=== PATIENT | female | born 1975 | race Caucasian/White ===

== ENCOUNTER 2017-06-27 07:54 | Inpatient (IN) | payer MEDICAID ==
[2017-06-27] MEDS ORDERED: Ketorolac 30 MG/ML SDV IVPUSH ONE (08:29)
[2017-06-27] MEDS ORDERED: Sodium Chloride 0.9% 1,000 ML IV ONE (08:29)
[2017-06-27] MEDS ORDERED: Ondansetron 4 MG/2 ML SDV IVPUSH ONE (08:29)
--- NOTE | 2017-06-27 08:40 | EDM.PDOC ---
ED HPI GENERAL MEDICAL PROBLEM - General Chief Complaint: Abdominal Pain Stated Complaint: STOMACH PAINS Time Seen by Provider: 06/27/17 08:38 - History of Present Illness INITIAL COMMENTS - FREE TEXT/NARRATIVE: HISTORY AND PHYSICAL: History of present illness: Patient's 41-year-old female with history of alcohol abuse and pancreatitis presents with a concern of upper abdominal pain after having been drinking recently she denies nausea vomiting fever chills shortness of breath or other concern. Review of systems: As per history of present illness and below otherwise all systems reviewed and negative. Past medical history: As per history of present illness and as reviewed below otherwise noncontributory. Surgical history: As per history of present illness and as reviewed below otherwise noncontributory. Social history: No reported history of drug or alcohol abuse. Family history: As per history of present illness and as reviewed below otherwise noncontributory. Physical exam: HEENT: Atraumatic, normocephalic, pupils reactive, negative for conjunctival pallor or scleral icterus, mucous membranes moist, throat clear, neck supple, nontender, trachea midline. Lungs: Clear to auscultation, breath sounds equal bilaterally, chest nontender. Heart: S1S2, regular, negative for clicks, rubs, or JVD. Abdomen: Soft, nondistended, tenderness across her upper abdomen to deep palpation no rebound no guarding Negative for masses or hepatosplenomegaly. Negative for costovertebral tenderness. Pelvis: Stable nontender. Genitourinary: Deferred. Rectal: Deferred. Extremities: Atraumatic, negative for cords or calf pain. Neurovascular unremarkable. Neuro: Awake, alert, oriented. Cranial nerves II through XII unremarkable. Cerebellum unremarkable. Motor and sensory unremarkable throughout. Exam nonfocal. Diagnostics: CBC CMP troponin PT/INR lipase chest x-ray EKG CT abdomen and pelvis with IV contrast Therapeutics: Normal saline 1 L bolus Toradol 30 mg IV Zofran 4 mg IV Impression: #1 alcohol abuse #2 abdominal pain history pancreatitis Definitive disposition and diagnosis as appropriate pending reevaluation and review of above. adbominal Pain Score (Numeric/FACES): 10 - Related Data Allergies Allergy/AdvReac Type Severity Reaction Status Date / Time Iodinated Contrast- Oral and Allergy Hives Verified 06/27/17 08:00 IV Dye [Iodinated Contrast Media - IV Dye] metoprolol Allergy Hives Verified 06/27/17 08:00 Home Meds: Home Meds Albuterol [Ventolin HFA] 2 puff INH Q4HR PRN 01/16/15 [History] Albuterol [Proair HFA] 2 puff INH QID PRN 01/26/16 [History] Iron/FA#1/C/B12/Biot/Coppr/Dss [Feriva FA Capsule] 1 each PO DAILY 01/26/16 [ History] Propranolol HCl [Propranolol] 60 mg PO DAILY 01/26/16 [History] Folic Acid 800 mcg PO DAILY 01/27/16 [History] Tiotropium [Spiriva HandiHaler] 2 puff DAILY 01/27/16 [History] Past Medical History HEENT History: Reports: Impaired Vision Respiratory History: Reports: Asthma, COPD Gastrointestinal History: Reports: Pancreatitis, Other (See Below) Other Gastrointestinal History: abdominal hernia Genitourinary History: Reports: None WANT AD SUPERVISOR History: Reports: Other (See Below) Other OB/BYN History: c section Musculoskeletal History: Reports: None Neurological History: Reports: Headaches, Chronic, Other (See Below) Other Neuro History: hand tremors Psychiatric History: Reports: None Endocrine/Metabolic History: Reports: Obesity/BMI 30+ Hematologic History: Reports: Anemia Oncologic (Cancer) History: Reports: None Dermatologic History: Reports: None - Past Surgical History Head Surgeries/Procedures: Reports: None Respiratory Surgical History: Reports: None GI Surgical History: Reports: Hernia Repair/Other, Other (See Below) Female Surgical History: Reports: None Endocrine Surgical History: Reports: None Neurological Surgical History: Reports: C-Spine Musculoskeletal Surgical History: Reports: None Oncologic Surgical History: Reports: None Dermatological Surgical History: Reports: None Social & Family History - Family History Family Medical History: Noncontributory HEENT: Reports: None Cardiac: Reports: Hypertension Respiratory: Reports: Asthma GI: Reports: None : Reports: None OBGYN: Reports: None Musculoskeletal: Reports: Arthritis Neurological: Reports: CVA Psychiatric: Reports: None Endocrine/Metabolic: Reports: Diabetes, type II Hematologic: Reports: None Oncologic: Reports: None - Tobacco Use Smoking Status *Q: Never Smoker Years of Tobacco use: 15 Packs/Tins Daily: 1 Used Tobacco, but Quit: Yes Month/Year Tobacco Last Used: october 2015 Second Hand Smoke Exposure: No - Caffeine Use Caffeine Use: Reports: None - Alcohol Use Days Per Week of Alcohol Use: 3 Number of Drinks Per Day: 2 Total Drinks Per Week: 6 - Recreational Drug Use Recreational Drug Use: No - Living Situation & Occupation Living situation: Reports: with Significant Other ED ROS GENERAL - Review of Systems Review Of Systems: ROS reveals no pertinent complaints other than HPI. ED EXAM, GENERAL - Physical Exam Exam: See Below (The dictation) Course - Vital Signs Last Recorded V/S: Last Vital Signs Temp 36.2 C 06/27/17 08:01 Pulse 101 H 06/27/17 09:13 Resp 20 06/27/17 09:13 BP 116/66 06/27/17 09:13 Pulse Ox 96 06/27/17 09:13 - Orders/Labs/Meds Orders: Active Orders 24 hr Category Date Time Status EKG 12 Lead [EKG Documentation Completion] [RC] STAT Care 06/27/17 08:12 Active Abdomen Pelvis wo Cont [CT] Stat Exams 06/27/17 08:29 Ordered HCG QUALITATIVE,URINE [URCHEM] Stat Lab 06/27/17 08:10 Ordered UA W/MICROSCOPIC [URIN] Stat Lab 06/27/17 08:16 Ordered Labs: Laboratory Tests 06/27/17 06/27/17 06/27/17 Range/Units 08:10 08:16 08:20 WBC 10.45 (4.0-11.0) K/uL RBC 3.50 L (4.30-5.90) M/uL Hgb 11.5 L (12.0-16.0) g/dL Hct 34.8 L (36.0-46.0) % MCV 99.4 H (80.0-98.0) fL MCH 32.9 H (27.0-32.0) pg MCHC 33.0 (31.0-37.0) g/dL RDW Std Deviation 50.1 (28.0-62.0) fl RDW Coeff of Christen 14 (11.0-15.0) % Plt Count 438 H (150-400) K/uL MPV 9.20 (7.40-12.00) fL Neut % (Auto) 53.1 (48.0-80.0) % Lymph % (Auto) 33.9 (16.0-40.0) % Payne % (Auto) 7.0 (0.0-15.0) % Eos % (Auto) 4.9 (0.0-7.0) % Baso % (Auto) 1.1 (0.0-1.5) % Neut # (Auto) 5.6 (1.4-5.7) K/uL Lymph # (Auto) 3.5 H (0.6-2.4) K/uL Payne # (Auto) 0.7 (0.0-0.8) K/uL Eos # (Auto) 0.5 (0.0-0.7) K/uL Baso # (Auto) 0.1 (0.0-0.1) K/uL Nucleated RBC % 0.0 /100WBC Nucleated RBCs # 0 K/uL INR Sodium (136-145) mmol/L Potassium (3.5-5.1) mmol/L Chloride (98-107) mmol/L Carbon Dioxide (21.0-32.0) mmol/L BUN (7.0-18.0) mg/dL Creatinine (0.6-1.0) mg/dL Est Cr Clr Drug Dosing mL/min Estimated GFR (MDRD) ml/min Glucose (74-106) mg/dL Calcium (8.5-10.1) mg/dL Total Bilirubin (0.2-1.0) mg/dL AST (15-37) IU/L ALT (14-63) IU/L Alkaline Phosphatase (46-116) U/L Troponin I (0.000-0.056) ng/mL Total Protein (6.4-8.2) g/dL Albumin (3.4-5.0) g/dL Globulin (2.0-3.5) g/dL Albumin/Globulin Ratio (1.3-2.8) Amylase (25-115) U/L Lipase (73-393) U/L Urine Color DARK YELLOW Urine Appearance SLT CLOUDY Urine pH 5.5 (5.0-8.0) Ur Specific [place] >= 1.030 (1.001-1.035) Urine Protein 30 (NEGATIVE) mg/dL Urine Glucose (UA) NEGATIVE (NEGATIVE) mg/dL Urine Ketones TRACE H (NEGATIVE) mg/dL Urine Occult Blood NEGATIVE (NEGATIVE) Urine Nitrite NEGATIVE (NEGATIVE) Urine Bilirubin MODERATE H (NEGATIVE) Urine Ictotest QNS Urine Urobilinogen 0.2 (<2.0) EU/dL Ur Leukocyte Esterase MODERATE (NEGATIVE) Urine RBC 0-2 (0-2/HPF) Urine WBC 8-10 (0-5/HPF) Ur Epithelial Cells MODERATE (NONE-FEW) Amorphous Sediment MODERATE (NEGATIVE) Urine Bacteria FEW (NEGATIVE) Urine HCG, Qual NEGATIVE (NEGATIVE) 06/27/17 06/27/17 Range/Units 08:20 08:20 WBC (4.0-11.0) K/uL RBC (4.30-5.90) M/uL Hgb (12.0-16.0) g/dL Hct (36.0-46.0) % MCV (80.0-98.0) fL MCH (27.0-32.0) pg MCHC (31.0-37.0) g/dL RDW Std Deviation (28.0-62.0) fl RDW Coeff of Christen (11.0-15.0) % Plt Count (150-400) K/uL MPV (7.40-12.00) fL Neut % (Auto) (48.0-80.0) % Lymph % (Auto) (16.0-40.0) % Payne % (Auto) (0.0-15.0) % Eos % (Auto) (0.0-7.0) % Baso % (Auto) (0.0-1.5) % Neut # (Auto) (1.4-5.7) K/uL Lymph # (Auto) (0.6-2.4) K/uL Payne # (Auto) (0.0-0.8) K/uL Eos # (Auto) (0.0-0.7) K/uL Baso # (Auto) (0.0-0.1) K/uL Nucleated RBC % /100WBC Nucleated RBCs # K/uL INR 0.97 Sodium 139 (136-145) mmol/L Potassium 4.7 (3.5-5.1) mmol/L Chloride 104 (98-107) mmol/L Carbon Dioxide 18.3 L (21.0-32.0) mmol/L BUN 36 H (7.0-18.0) mg/dL Creatinine 2.0 H (0.6-1.0) mg/dL Est Cr Clr Drug Dosing 32.29 mL/min Estimated GFR (MDRD) 27.6 ml/min Glucose 115 H (74-106) mg/dL Calcium 9.5 (8.5-10.1) mg/dL Total Bilirubin 0.3 (0.2-1.0) mg/dL AST 44 H (15-37) IU/L ALT 26 (14-63) IU/L Alkaline Phosphatase 144 H (46-116) U/L Troponin I < 0.050 (0.000-0.056) ng/mL Total Protein 8.4 H (6.4-8.2) g/dL Albumin 3.3 L (3.4-5.0) g/dL Globulin 5.1 H (2.0-3.5) g/dL Albumin/Globulin Ratio 0.7 L (1.3-2.8) Amylase 150 H (25-115) U/L Lipase 1835 H (73-393) U/L Urine Color Urine Appearance Urine pH (5.0-8.0) Ur Specific [place] (1.001-1.035) Urine Protein (NEGATIVE) mg/dL Urine Glucose (UA) (NEGATIVE) mg/dL Urine Ketones (NEGATIVE) mg/dL Urine Occult Blood (NEGATIVE) Urine Nitrite (NEGATIVE) Urine Bilirubin (NEGATIVE) Urine Ictotest Urine Urobilinogen (<2.0) EU/dL Ur Leukocyte Esterase (NEGATIVE) Urine RBC (0-2/HPF) Urine WBC (0-5/HPF) Ur Epithelial Cells (NONE-FEW) Amorphous Sediment (NEGATIVE) Urine Bacteria (NEGATIVE) Urine HCG, Qual (NEGATIVE) Meds: Medications Discontinued Medications Generic Name Dose Route Start Last Admin Trade Name Freq PRN Reason Stop Dose Admin Diphenhydramine HCl 50 mg 06/27/17 08:50 06/27/17 09:08 Benadryl IVPUSH 06/27/17 08:51 50 mg ONETIME ONE Administration Hydromorphone HCl 1 mg 06/27/17 11:16 Dilaudid IVPUSH 06/27/17 11:17 ONETIME ONE Sodium Chloride 1,000 mls @ 999 mls/hr 06/27/17 08:29 06/27/17 08:41 Normal Saline IV 06/27/17 09:29 999 mls/hr .Bolus ONE Administration Iopamidol 100 ml 06/27/17 09:26 06/27/17 09:27 Isovue Multipack-370 (76%) IVPUSH 06/27/17 09:27 100 ml ONETIME STA Administration Ketorolac Tromethamine 30 mg 06/27/17 08:29 06/27/17 08:41 Toradol IVPUSH 06/27/17 08:30 30 mg ONETIME ONE Administration Methylprednisolone Sodium Succinate 125 mg 06/27/17 08:50 06/27/17 09:08 Solu-Medrol IV 06/27/17 08:51 125 mg STAT STA Administration Ondansetron HCl 4 mg 06/27/17 08:29 06/27/17 08:41 Zofran IVPUSH 06/27/17 08:30 4 mg ONETIME ONE Administration Departure - Departure Time of Disposition: 11:18 Disposition: Refer to Observation Condition: Good Clinical Impression: Abdominal pain, ETOH abuse Pancreatitis Qualifiers: Chronicity: acute Pancreatitis type: alcohol induced Acute pancreatitis complication: no infection or necrosis Qualified Code(s): K85.20 - Alcohol induced acute pancreatitis without necrosis or infection - Discharge Information Referrals: PCP,None [Primary Care Provider] - Forms: ED Department Discharge - My Orders Last 24 Hours: My Active Orders 06/27/17 08:10 HCG QUALITATIVE,URINE [URCHEM] Stat 06/27/17 08:12 EKG 12 Lead [EKG Documentation Completion] [RC] STAT 06/27/17 08:16 UA W/MICROSCOPIC [URIN] Stat 06/27/17 08:29 Abdomen Pelvis wo Cont [CT] Stat - Assessment/Plan Last 24 Hours: My Active Orders 06/27/17 08:10 HCG QUALITATIVE,URINE [URCHEM] Stat 06/27/17 08:12 EKG 12 Lead [EKG Documentation Completion] [RC] STAT 06/27/17 08:16 UA W/MICROSCOPIC [URIN] Stat 06/27/17 08:29 Abdomen Pelvis wo Cont [CT] Stat
[2017-06-27] MEDS ORDERED: diphenhydrAMINE 50 MG/ML SDV IVPUSH ONE (08:50)
[2017-06-27] MEDS ORDERED: methylPREDNISolone Sodium Succinate 125 MG/2 ML SDV IV STA (08:50)
--- NOTE | 2017-06-27 09:19 | CR ---
EXAMINATION: Portable chest radiograph. HISTORY: Pain. FINDINGS: The trachea is midline. The cardiomediastinal silhouette is within normal limits. No pulmonary infilt rates, effusions or pneumothorax. Osseous structures appear unremarkable. IMPRESSION: No acute cardiopulmonary process.
[2017-06-27] MEDS ORDERED: Iopamidol 755 MG/ML 500 ML Multipack Bottle IVPUSH STA (09:26)
[2017-06-27 10:15] LABS: CHLORIDE,CL 104 mmol/L (98-107); SODIUM,NA 139 mmol/L (136-145)
[2017-06-27] MEDS ORDERED: HYDROmorphone 1 MG/ML Syringe IVPUSH ONE (11:16)
--- NOTE | 2017-06-27 11:40 | CT ---
CT of the abdomen and pelvis without contrast. HISTORY: Pain TECHNIQUE: Axial CT images were obtained of the abdomen and pelvis without contrast. Coronal and sagi ttal reconstructions obtained. FINDINGS: The lung bases are clear, no pleural effusion. The liver is prominent in size. The spleen is diminutive. Stranding is noted within the upper abdomen likely pancreatic in origin. The gallbladder is unremarkable. There is no bulky retroperitoneal lym phadenopathy. No abdominal ascites. There is a large left lateral ventral abdominal hernia containing bowel and 2 small right lateral hernias containing bowel. There are no calcifications noted within the kidneys or along the courses of the ureters bilaterally. There is a peripherally calcified collection adjacent to the left kidney likely secondary to an old injury versus hematoma. The large and small bowel are normal in caliber without evidence of obstruction. Mild diverticulosis. The appendix is normal. There is no bulky pelvic lymphadenopathy. No free fluid. No free air. The ur inary bladder appears normal. Uterine fibroid is noted. The visualized osseous structures appear normal. IMPRESSION: 1. Peripancreatic stranding consistent with pancreatitis. 2. Large left and to a small right abdominal hernias containing bowel without evidence of obstruction . 3. Uterine fibroid. 4. Peripherally calcified left perirenal collection, likely secondary to an old hematoma.
[2017-06-27] MEDS ORDERED: Lactated Ringers 1,000 ML IV ONE (13:06)
[2017-06-27] MEDS ORDERED: Thiamine 200 MG/2 ML MDV IV SCH (13:15)
[2017-06-27] MEDS ORDERED: Albuterol 8 GM Inhaler INH PRN (13:16)
[2017-06-27] MEDS: Folic Acid 50 MG/10 ML MDV SUBCUT SCH (13:37)
[2017-06-27] MEDS: HYDROmorphone 1 MG/ML Syringe IVPUSH PRN ×4 (13:39→23:37)
--- NOTE | 2017-06-27 13:44 | PCM.HP ---
H&P History of Present Illness - General Date of Service: 06/27/17 Admit Problem/Dx: Admission Diagnosis/Problem Admission Diagnosis/Problem Pancreatitis Source of Information: Patient History Limitations: Reports: No Limitations - History of Present Illness Initial Comments - Free Text/Narative: This 41 year old female with pmh of alcoholic pancreatitis, morbid obesity, COPD , and severe abdominal hernias presented to the ED today with 1 week of abdominal pain which has continued to worsen. She reports she started drinking more heavily approximately 1 week ago after her father . Prior to this she reports drinking heavily 2-3 nights weekly and then a couple beers daily. She reports the pain started and she started to decrease her oral intake and eat only ice chips at home to help with pain. But then pain worsened, it is sharp in nature radiating to her back, with nausea and dry heaves. She denies chest pain or palpitations. NO dyspnea or urinary symptoms. She reports having some dark tarry stools recently, she does take Iron orally at home but these stools seem different, per her report. She quit smoking 1 year ago, but has had trouble with alcohol use still. Her fiance, Jason, supplies the alcohol to her and drinks with her when he is off work. She denies wanting inpatient help and has excuses as to why she has not follow through with [facility] program or AA meetings here in town. She is currently not working. She denies recreational drug use. She did have appointment today with Dr Russell to be evaluated for near syncope at home. Reports this happens she she gets up and starts ambulating. Reports a little bit of a "skipping heart" at these times and lightheadedness. No chest pain or SOB with these episodes. She reports passing out a few weeks ago when she was walking to their car after sitting and eating in a restaurant. She came to very quickly. She had been drinking at this time. In the ED no leukocytosis noted, hgb 11.5, Bicarb 18.5, BUN 36, Cr 2.0. UA positive for leukocyte esterase, few bacteria, pyuria 5-10. CXR negative. Abdominal/pelvis CT revealed peripancreatic stranding consistent with pancreatitis, large left and small right abdominal hernias containing bowel, no evidence of obstruction, Uterine fibroid. She was treated with Toradol, Dilaudid and IVFs in the ED. She will be admitted with acute alcoholic pancreatitis. PCP, Dr Russell adbominal Pain Score (Numeric/FACES): 5 - Related Data Allergies/Adverse Reactions: Allergies Allergy/AdvReac Type Severity Reaction Status Date / Time Iodinated Contrast- Oral and Allergy Hives Verified 06/27/17 08:00 IV Dye [Iodinated Contrast Media - IV Dye] metoprolol Allergy Hives Verified 06/27/17 08:00 Home Medications: Home Meds Albuterol [Proair HFA] 2 puff INH QID PRN 01/26/16 [History] Iron/FA#1/C/B12/Biot/Coppr/Dss [Feriva FA Capsule] 1 each PO DAILY 01/26/16 [ History] Propranolol HCl [Propranolol] 60 mg PO DAILY 01/26/16 [History] Folic Acid 80 mcg PO BID 01/27/16 [History] Tiotropium [Spiriva HandiHaler] 2 puff DAILY 01/27/16 [History] B12/Levomefolate Calcium/B-6 [Folbic Rf Tablet] 06/27/17 [History] Past Medical History HEENT History: Reports: Impaired Vision Cardiovascular History: Reports: Hypertension Respiratory History: Reports: Asthma, COPD Gastrointestinal History: Reports: Pancreatitis, Other (See Below) Other Gastrointestinal History: abdominal hernia Genitourinary History: Reports: None 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 (See Below) Other OB/BYN History: c section Musculoskeletal History: Reports: None Neurological History: Reports: Headaches, Chronic, Other (See Below) Other Neuro History: hand tremors Psychiatric History: Reports: Addiction, Depression Endocrine/Metabolic History: Reports: Obesity/BMI 30+ Hematologic History: Reports: Anemia Oncologic (Cancer) History: Reports: None Dermatologic History: Reports: None - Past Surgical History Head Surgeries/Procedures: Reports: None Respiratory Surgical History: Reports: None GI Surgical History: Reports: Hernia Repair/Other, Other (See Below) Female Surgical History: Reports: None Endocrine Surgical History: Reports: None Neurological Surgical History: Reports: C-Spine Musculoskeletal Surgical History: Reports: None Oncologic Surgical History: Reports: None Dermatological Surgical History: Reports: None Social & Family History - Family History Family Medical History: Noncontributory HEENT: Reports: None Cardiac: Reports: Hypertension Respiratory: Reports: Asthma GI: Reports: None : Reports: None OBGYN: Reports: None Musculoskeletal: Reports: Arthritis Neurological: Reports: CVA Psychiatric: Reports: None Endocrine/Metabolic: Reports: Diabetes, type II Hematologic: Reports: None Oncologic: Reports: None - Tobacco Use Smoking Status *Q: Former Smoker Years of Tobacco use: 15 Packs/Tins Daily: 1 Used Tobacco, but Quit: Yes Month/Year Tobacco Last Used: june 2016 Tobacco Use Comment: Quit smoking one year ago. Second Hand Smoke Exposure: No - Caffeine Use Caffeine Use: Reports: Tea - Alcohol Use Days Per Week of Alcohol Use: 4 Number of Drinks Per Day: 2 Total Drinks Per Week: 8 Date of Last Drink: 06/26/17 Time of Last Drink: 10:00 - Recreational Drug Use Recreational Drug Use: No - Living Situation & Occupation Living situation: Reports: with Significant Other Occupation: Unemployed H&P Review of Systems - Review of Systems: Review Of Systems: See Below General: Denies: Fever, Chills, Malaise, Weakness HEENT: Reports: No Symptoms. Denies: Headaches, Sinus Congestion, Visual Changes Pulmonary: Reports: No Symptoms. Denies: Shortness of Breath, Cough, Sputum Cardiovascular: Reports: No Symptoms. Denies: Chest Pain, Edema Gastrointestinal: Reports: Abdominal Pain, Black Stool, Decreased Appetite, Nausea, Vomiting. Denies: Constipation, Diarrhea, Distension Genitourinary: Reports: No Symptoms. Denies: Dysuria, Frequency, Burning, Pain Musculoskeletal: Reports: No Symptoms Skin: Reports: No Symptoms Psychiatric: Reports: No Symptoms Neurological: Reports: No Symptoms Hematologic/Lymphatic: Reports: No Symptoms Immunologic: Reports: No Symptoms Exam - Exam Exam: See Below - Vital Signs Vital Signs: Last Vital Signs Temp 97.1 F 06/27/17 08:01 Pulse 91 06/27/17 11:56 Resp 16 06/27/17 11:56 BP 127/73 06/27/17 11:56 Pulse Ox 96 06/27/17 11:56 Weight: 120.474 kg - Exam Quality Assessment: DVT Prophylaxis General: Alert, Oriented, Cooperative, Mild Distress HEENT: Conjunctiva Clear, Mucosa Moist & [place], Posterior Pharynx Clear Neck: Supple, Trachea Midline, 2 Lungs: Clear to Auscultation, Normal Respiratory Effort Cardiovascular: Regular Rate, Regular Rhythm GI/Abdominal Exam: Normal Bowel Sounds, Soft, Tender (epigastric region), Hernia (large L abdominal hernia, and two smaller R abdominal hernias. ), Other (abdominal hernias) Back Exam: Normal Inspection, Full Range of Motion, NT Extremities: Normal Inspection, Normal Range of Motion, Non-Tender, No Pedal Edema, Normal Capillary Refill Neuro Extensive - Mental Status: Alert, Oriented x3, Normal Mood/Affect, Normal Cognition, Other (tremors to bilateral hands. ) Neuro Extensive - Motor, Sensory, Reflexes: CN II-XII Intact, Normal Gait Psychiatric: Alert, Normal Affect, Anxious - Patient Data Lab Results Last 24 hrs: Laboratory Results - last 24 hr 06/27/17 06/27/17 06/27/17 Range/Units 08:10 08:16 08:20 WBC 10.45 (4.0-11.0) K/uL RBC 3.50 L (4.30-5.90) M/uL Hgb 11.5 L (12.0-16.0) g/dL Hct 34.8 L (36.0-46.0) % MCV 99.4 H (80.0-98.0) fL MCH 32.9 H (27.0-32.0) pg MCHC 33.0 (31.0-37.0) g/dL RDW Std Deviation 50.1 (28.0-62.0) fl RDW Coeff of Christen 14 (11.0-15.0) % Plt Count 438 H (150-400) K/uL MPV 9.20 (7.40-12.00) fL Neut % (Auto) 53.1 (48.0-80.0) % Lymph % (Auto) 33.9 (16.0-40.0) % [place] % (Auto) 7.0 (0.0-15.0) % Eos % (Auto) 4.9 (0.0-7.0) % Baso % (Auto) 1.1 (0.0-1.5) % Neut # (Auto) 5.6 (1.4-5.7) K/uL Lymph # (Auto) 3.5 H (0.6-2.4) K/uL [place] # (Auto) 0.7 (0.0-0.8) K/uL Eos # (Auto) 0.5 (0.0-0.7) K/uL Baso # (Auto) 0.1 (0.0-0.1) K/uL Nucleated RBC % 0.0 /100WBC Nucleated RBCs # 0 K/uL INR Sodium (136-145) mmol/L Potassium (3.5-5.1) mmol/L Chloride (98-107) mmol/L Carbon Dioxide (21.0-32.0) mmol/L BUN (7.0-18.0) mg/dL Creatinine (0.6-1.0) mg/dL Est Cr Clr Drug Dosing mL/min Estimated GFR (MDRD) ml/min Glucose (74-106) mg/dL Calcium (8.5-10.1) mg/dL Total Bilirubin (0.2-1.0) mg/dL AST (15-37) IU/L ALT (14-63) IU/L Alkaline Phosphatase (46-116) U/L Troponin I (0.000-0.056) ng/mL Total Protein (6.4-8.2) g/dL Albumin (3.4-5.0) g/dL Globulin (2.0-3.5) g/dL Albumin/Globulin Ratio (1.3-2.8) Amylase (25-115) U/L Lipase (73-393) U/L Urine Color DARK YELLOW Urine Appearance SLT CLOUDY Urine pH 5.5 (5.0-8.0) Ur Specific [place] >= 1.030 (1.001-1.035) Urine Protein 30 (NEGATIVE) mg/dL Urine Glucose (UA) NEGATIVE (NEGATIVE) mg/dL Urine Ketones TRACE H (NEGATIVE) mg/dL Urine Occult Blood NEGATIVE (NEGATIVE) Urine Nitrite NEGATIVE (NEGATIVE) Urine Bilirubin MODERATE H (NEGATIVE) Urine Ictotest QNS Urine Urobilinogen 0.2 (<2.0) EU/dL Ur Leukocyte Esterase MODERATE (NEGATIVE) Urine RBC 0-2 (0-2/HPF) Urine WBC 8-10 (0-5/HPF) Ur Epithelial Cells MODERATE (NONE-FEW) Amorphous Sediment MODERATE (NEGATIVE) Urine Bacteria FEW (NEGATIVE) Urine HCG, Qual NEGATIVE (NEGATIVE) 06/27/17 06/27/17 Range/Units 08:20 08:20 WBC (4.0-11.0) K/uL RBC (4.30-5.90) M/uL Hgb (12.0-16.0) g/dL Hct (36.0-46.0) % MCV (80.0-98.0) fL MCH (27.0-32.0) pg MCHC (31.0-37.0) g/dL RDW Std Deviation (28.0-62.0) fl RDW Coeff of [place]en (11.0-15.0) % Plt Count (150-400) K/uL MPV (7.40-12.00) fL Neut % (Auto) (48.0-80.0) % Lymph % (Auto) (16.0-40.0) % [place] % (Auto) (0.0-15.0) % Eos % (Auto) (0.0-7.0) % Baso % (Auto) (0.0-1.5) % Neut # (Auto) (1.4-5.7) K/uL Lymph # (Auto) (0.6-2.4) K/uL [place] # (Auto) (0.0-0.8) K/uL Eos # (Auto) (0.0-0.7) K/uL Baso # (Auto) (0.0-0.1) K/uL Nucleated RBC % /100WBC Nucleated RBCs # K/uL INR 0.97 Sodium 139 (136-145) mmol/L Potassium 4.7 (3.5-5.1) mmol/L Chloride 104 (98-107) mmol/L Carbon Dioxide 18.3 L (21.0-32.0) mmol/L BUN 36 H (7.0-18.0) mg/dL Creatinine 2.0 H (0.6-1.0) mg/dL Est Cr Clr Drug Dosing 32.29 mL/min Estimated GFR (MDRD) 27.6 ml/min Glucose 115 H (74-106) mg/dL Calcium 9.5 (8.5-10.1) mg/dL Total Bilirubin 0.3 (0.2-1.0) mg/dL AST 44 H (15-37) IU/L ALT 26 (14-63) IU/L Alkaline Phosphatase 144 H (46-116) U/L Troponin I < 0.050 (0.000-0.056) ng/mL Total Protein 8.4 H (6.4-8.2) g/dL Albumin 3.3 L (3.4-5.0) g/dL Globulin 5.1 H (2.0-3.5) g/dL Albumin/Globulin Ratio 0.7 L (1.3-2.8) Amylase 150 H (25-115) U/L Lipase 1835 H (73-393) U/L Urine Color Urine Appearance Urine pH (5.0-8.0) Ur Specific [place] (1.001-1.035) Urine Protein (NEGATIVE) mg/dL Urine Glucose (UA) (NEGATIVE) mg/dL Urine Ketones (NEGATIVE) mg/dL Urine Occult Blood (NEGATIVE) Urine Nitrite (NEGATIVE) Urine Bilirubin (NEGATIVE) Urine Ictotest Urine Urobilinogen (<2.0) EU/dL Ur Leukocyte Esterase (NEGATIVE) Urine RBC (0-2/HPF) Urine WBC (0-5/HPF) Ur Epithelial Cells (NONE-FEW) Amorphous Sediment (NEGATIVE) Urine Bacteria (NEGATIVE) Urine HCG, Qual (NEGATIVE) Result Diagrams: 06/27/17 08:20 06/27/17 08:20 *Q Meaningful Use (ADM) - VTE *Q VTE Pharmacological Contraindications *Q: Risk of Bleeding - Problem List (1) Pancreatitis SNOMED Code(s): 58534150 ICD Code: K85.90 - ACUTE PANCREATITIS WITHOUT NECROSIS OR INFECTION, UNSP Status: Acute Current Visit: Yes Qualifiers: Chronicity: acute Pancreatitis type: alcohol induced Acute pancreatitis complication: no infection or necrosis Qualified Code(s): K85.20 - Alcohol induced acute pancreatitis without necrosis or infection (2) Nausea & vomiting SNOMED Code(s): 05320846 ICD Code: R11.2 - NAUSEA WITH VOMITING, UNSPECIFIED Status: Acute Current Visit: Yes (3) Abdominal pain SNOMED Code(s): 13956884 ICD Code: R10.9 - UNSPECIFIED ABDOMINAL PAIN Status: Acute Current Visit : Yes (4) ETOH abuse SNOMED Code(s): 52110878 ICD Code: F10.10 - ALCOHOL ABUSE, UNCOMPLICATED Status: Chronic Current Visit: Yes (5) Near syncope SNOMED Code(s): 327018050 ICD Code: R55 - SYNCOPE AND COLLAPSE Status: Acute Current Visit: Yes (6) Abdominal hernia SNOMED Code(s): 07562984 ICD Code: K46.9 - UNSPECIFIED ABDOMINAL HERNIA WITHOUT OBSTRUCTION OR GANGRENE Status: Chronic Current Visit: No Qualifiers: Hernia type: unspecified (7) COPD (chronic obstructive pulmonary disease) SNOMED Code(s): 87949573 ICD Code: J44.9 - CHRONIC OBSTRUCTIVE PULMONARY DISEASE, UNSPECIFIED Status : Chronic Current Visit: No Qualifiers: COPD type: unspecified COPD Qualified Code(s): J44.9 - Chronic obstructive pulmonary disease, unspecified (8) Morbid obesity with BMI of 40.0-44.9, adult SNOMED Code(s): 138276398 ICD Code: E66.01 - MORBID (SEVERE) OBESITY DUE TO EXCESS CALORIES; Z68.41 - BODY MASS INDEX (BMI) 40.0-44.9, ADULT Status: Chronic Current Visit: No (9) HTN (hypertension) SNOMED Code(s): 67226451 ICD Code: I10 - ESSENTIAL (PRIMARY) HYPERTENSION Status: Chronic Current Visit: Yes Qualifiers: Hypertension type: essential hypertension Qualified Code(s): I10 - Essential (primary) hypertension Problem List Initiated/Reviewed/Updated: Yes Orders Last 24hrs: Active Orders 24 hr Category Date Time Status Admission Status [Patient Status] [ADT] Stat ADT 06/27/17 11:24 Active CIW[facility] Assessment [RC] Q4H Care 06/27/17 13:10 Ordered EKG 12 Lead [EKG Documentation Completion] [RC] STAT Care 06/27/17 08:12 Active Intake and Output [RC] QSHIFT Care 06/27/17 13:15 Ordered Oxygen Therapy [RC] PRN Care 06/27/17 13:14 Ordered Telemetry Monitoring [Cardiac Monitoring] [RC] . Care 06/27/17 13:43 Ordered DIRECTED Up With Assistance [RC] ASDIRECTED Care 06/27/17 13:14 Ordered VTE/DVT Education [RC] PER UNIT ROUTINE Care 06/27/17 13:14 Ordered Vital Signs [RC] Q4H Care 06/27/17 13:14 Ordered Abdomen Ltd [US] Urgent Exams 06/27/17 13:13 Ordered CBC WITH AUTO DIFF [HEME] AM Lab 06/28/17 05:11 Ordered CBC WITH AUTO DIFF [HEME] AM Lab 06/29/17 05:11 Ordered CBC WITH AUTO DIFF [HEME] AM Lab 06/30/17 05:11 Ordered COMPREHENSIVE METABOLIC PN,CMP [CHEM] AM Lab 06/28/17 05:11 Ordered COMPREHENSIVE METABOLIC PN,CMP [CHEM] AM Lab 06/29/17 05:11 Ordered COMPREHENSIVE METABOLIC PN,CMP [CHEM] AM Lab 06/30/17 05:11 Ordered HCG QUALITATIVE,URINE [URCHEM] Stat Lab 06/27/17 08:10 Ordered LIPASE [CHEM] AM Lab 06/28/17 05:11 Ordered MAGNESIUM [CHEM] AM Lab 06/28/17 05:11 Ordered MAGNESIUM [CHEM] AM Lab 06/29/17 05:11 Ordered MAGNESIUM [CHEM] AM Lab 06/30/17 05:11 Ordered MAGNESIUM [CHEM] Routine Lab 06/27/17 13:19 Ordered PHOSPHORUS [CHEM] AM Lab 06/28/17 05:11 Ordered PHOSPHORUS [CHEM] AM Lab 06/29/17 05:11 Ordered PHOSPHORUS [CHEM] AM Lab 06/30/17 05:11 Ordered PHOSPHORUS [CHEM] Routine Lab 06/27/17 13:19 Ordered UA W/MICROSCOPIC [URIN] Stat Lab 06/27/17 08:16 Ordered Albuterol [Proventil HFA] Med 06/27/17 13:16 Ordered 2 puff INH QID PRN Folic Acid Med 06/27/17 13:15 Ordered 1 mg SUBCUT DAILY HYDROmorphone [Dilaudid] Med 06/27/17 13:08 Ordered 1 mg IVPUSH Q3H PRN LORazepam [Ativan] Med 06/27/17 13:10 Ordered 1 mg IVPUSH Q4H PRN Lactated Ringers [Ringers, Lactated] 1,000 ml Med 06/27/17 13:06 Ordered IV .BOLUS Lactated Ringers [Ringers, Lactated] 1,000 ml Med 06/27/17 13:15 Ordered IV ASDIRECTED Ondansetron [Zofran] Med 06/27/17 13:14 Ordered 4 mg IVPUSH Q4H PRN Thiamine [Vitamin B-1] 100 mg Med 06/27/17 15:00 Active Sodium Chloride 0.9% [Normal Saline] 50 ml IV DAILY Tiotropium [Spiriva HandiHaler] Med 06/28/17 09:00 Ordered 2 puff INH DAILY Sequential Compression Device [OM.PC] Per Unit Routine Oth 06/27/17 13:15 Ordered Resuscitation Status Routine Resus Stat 06/27/17 13:14 Ordered Medication Orders Albuterol (Ventolin Hfa) 0 gm INH Q6H PRN PRN Reason: Shortness of Breath Folic Acid (Folic Acid) 1 mg SUBCUT DAILY ZARA Last Admin: 06/27/17 13:37 Dose: 1 mg Hydromorphone HCl (Dilaudid) 1 mg IVPUSH Q3H PRN PRN Reason: Pain Last Admin: 06/27/17 13:39 Dose: 1 mg Lactated Ringer's (Ringers, Lactated) 1,000 mls @ 999 mls/hr IV .BOLUS ONE Stop: 06/27/17 14:06 Last Admin: 06/27/17 13:31 Dose: 999 mls/hr Lactated Ringer's (Ringers, Lactated) 1,000 mls @ 200 mls/hr IV ASDIRECTED ZARA Thiamine HCl 100 mg/ Sodium (Chloride) 51 mls @ 102 mls/hr IV DAILY ZARA Lorazepam (Ativan) 1 mg IVPUSH Q4H PRN; Protocol PRN Reason: [facility] Ondansetron HCl (Zofran) 4 mg IVPUSH Q4H PRN PRN Reason: Nausea Tiotropium [place] (Spiriva Handihaler) 18 mcg INH DAILY [facility] Assessment/Plan Comment:: This 41year old female admitted with acute alcoholic pancreatitis 1. Alcoholic pancreatitis: IVF resuscitation with LR bolus now and then LR 200 mls/hr. Dilaudid for pain and Zofran for nausea. Bowel rest for now, ice chips ok. Will obtain RUQ abdominal US. Monitor electrolytes 2. Alcohol abuse: Declines inpatient treatment. Will cover with Ativan for CIWAA protocol PRN. Folate and Thiamine daily. Provide resources of AA meeting list and [facility] pamphlet on discharge. 3. Dark tarry stools: No hemorrhoids, will check hemoccult. Could be from Iron supplementation. Hgb 11.5 4. OBDULIO: Secondary to dehydration, monitor with IV fluids 5. Syncope: Monitor on telemetry, sounds like this could be alcohol induced, orthostatic hypotension. But reports some "skipping heart" when this happens. 6. HTN: Stable. Hold PO medication for now. 7. COPD: Controlled. Continue Spiriva VTE prophylaxis: SCDs only for now. Checking hemoccult. Dispo: 2-4 days pending improvement.
--- NOTE | 2017-06-27 14:24 | US ---
EXAMINATION: However quadrant ultrasound HISTORY: Pancreatitis COMPARISON: CT from the same day TECHNIQUE: Grayscale and color Doppler images obtained of the right upper quadrant. FINDINGS: Pancreas is not optimally characterized. The liver is mildly increased in echotexture. Cont our is otherwise normal. No focal hepatic mass identified. Gallbladder wall thickness is normal. No p ericholecystic fluid or shadowing gallstones. Common bile duct measures 5 mm. The right kidney measur es 10.3 cm [id number] without evidence of hydronephrosis. Sonographic Wilhelm sign is reported posit phan. IMPRESSION: 1. Mild fatty infiltration of the liver. 2. No cholelithiasis identified.
[2017-06-27] MEDS: Lactated Ringers 1,000 ML IV SCH ×2 (14:48→21:09)
[2017-06-27] MEDS: Thiamine 100 MG in Sodium Chloride 0.9% 50 ML IV SCH (16:11)
[2017-06-27] MEDS: cefTRIAXone 1,000 MG in Dextrose 5% in Water 50 ML IV SCH ×2 (16:11)
[2017-06-27] MEDS: Temazepam 15 MG Cap PO PRN (22:41)
[2017-06-28] MEDS: Lactated Ringers 1,000 ML IV SCH ×4 (02:14→20:02)
[2017-06-28] MEDS: HYDROmorphone 1 MG/ML Syringe IVPUSH PRN ×5 (03:49→13:30)
[2017-06-28] MEDS ORDERED: Magnesium Sulfate/Water 4 GM in Premix Bag 1 BAG IV ONE (08:14)
[2017-06-28] MEDS ORDERED: Lactated Ringers 1,000 ML IV ONE (09:06)
[2017-06-28] MEDS: Folic Acid 50 MG/10 ML MDV SUBCUT SCH (09:11)
[2017-06-28] MEDS: Tiotropium Inhaler 18 MCG Inhalation Powder Cap Kit of 5 INH SCH (09:15)
[2017-06-28] MEDS: Thiamine 100 MG in Sodium Chloride 0.9% 50 ML IV SCH (09:17)
--- NOTE | 2017-06-28 11:35 | PCM.PN ---
- General Info Date of Service: 06/28/17 Admission Dx/Problem (Free Text): Admission Diagnosis/Problem Admission Diagnosis/Problem Pancreatitis Subjective Update: Having some increased pain this morning to epigastric region and radiating to back. No chest pain or SOB. few tremors, no hallucinations, some anxiety. No diarrhea or black stools now. Denies lightheadedness or near syncope here in the hospital. Functional Status: Reports: Ambulating, Urinating. Denies: Pain Controlled - Review of Systems General: Reports: No Symptoms. Denies: Fever, Weakness, Fatigue, Malaise HEENT: Reports: No Symptoms. Denies: Headaches, Sore Throat, Rhinitis, Visual Changes Pulmonary: Reports: No Symptoms. Denies: Shortness of Breath, Cough, Sputum Cardiovascular: Reports: No Symptoms. Denies: Chest Pain, Palpitations, Dyspnea on Exertion, Edema Gastrointestinal: Reports: Abdominal Pain (sharp shooting, radiating to the back ), Flatus. Denies: Diarrhea, Nausea, Vomiting Genitourinary: Reports: No Symptoms, Dysuria, Frequency, Burning Musculoskeletal: Reports: No Symptoms Skin: Reports: No Symptoms Neurological: Reports: No Symptoms Psychiatric: Reports: No Symptoms - Patient Data Vitals - Most Recent: Last Vital Signs Temp 98.8 F 06/28/17 04:25 Pulse 100 06/28/17 09:00 Resp 18 06/28/17 09:00 BP 146/67 H 06/28/17 09:00 Pulse Ox 100 06/28/17 09:00 Orthostatic Blood Pressure [ 105/56 Standing] Orthostatic Blood Pressure [ 105/55 Sitting] Orthostatic Blood Pressure [ 100/55 Supine] Weight - Most Recent: 120.474 kg I&O - Last 24 Hours: Intake & Output 06/27/17 06/28/17 06/28/17 22:59 06:59 14:59 Intake Total 172 2188 Output Total 150 650 Balance 22 1538 Lab Results Last 24 Hours: Laboratory Results - last 24 hr 06/27/17 06/28/17 06/28/17 Range/Units 08:27 06:30 06:30 WBC 11.26 H (4.0-11.0) K/uL RBC 2.87 L (4.30-5.90) M/uL Hgb 9.3 L (12.0-16.0) g/dL Hct 28.7 L (36.0-46.0) % MCV 100.0 H (80.0-98.0) fL MCH 32.4 H (27.0-32.0) pg MCHC 32.4 (31.0-37.0) g/dL RDW Std Deviation 49.9 (28.0-62.0) fl RDW Coeff of Christen 14 (11.0-15.0) % Plt Count 376 (150-400) K/uL MPV 9.50 (7.40-12.00) fL Neut % (Auto) 60.5 (48.0-80.0) % Lymph % (Auto) 31.1 (16.0-40.0) % [place] % (Auto) 8.0 (0.0-15.0) % Eos % (Auto) 0.2 (0.0-7.0) % Baso % (Auto) 0.2 (0.0-1.5) % Neut # (Auto) 6.8 H (1.4-5.7) K/uL Lymph # (Auto) 3.5 H (0.6-2.4) K/uL [place] # (Auto) 0.9 H (0.0-0.8) K/uL Eos # (Auto) 0.0 (0.0-0.7) K/uL Baso # (Auto) 0.0 (0.0-0.1) K/uL Nucleated RBC % 0.0 /100WBC Nucleated RBCs # 0 K/uL Sodium 138 (136-145) mmol/L Potassium 4.6 (3.5-5.1) mmol/L Chloride 106 (98-107) mmol/L Carbon Dioxide 21.1 (21.0-32.0) mmol/L BUN 35 H (7.0-18.0) mg/dL Creatinine 1.4 H (0.6-1.0) mg/dL Est Cr Clr Drug Dosing 46.13 mL/min Estimated GFR (MDRD) 41.6 ml/min Glucose 92 (74-106) mg/dL Calcium 8.5 (8.5-10.1) mg/dL Phosphorus 4.2 3.9 (2.6-4.7) mg/dL Magnesium 1.6 1.3 L (1.5-2.0) mg/dL Total Bilirubin 0.3 (0.2-1.0) mg/dL AST 18 (15-37) IU/L ALT 17 (14-63) IU/L Alkaline Phosphatase 102 (46-116) U/L Total Protein 6.8 (6.4-8.2) g/dL Albumin 2.6 L (3.4-5.0) g/dL Globulin 4.2 H (2.0-3.5) g/dL Albumin/Globulin Ratio 0.6 L (1.3-2.8) Lipase 1931 H (73-393) U/L Med Orders - Current: Current Medications Albuterol (Ventolin Hfa) 0 gm INH Q6H PRN PRN Reason: Shortness of Breath Folic Acid (Folic Acid) 1 mg SUBCUT DAILY [facility] Last Admin: 06/28/17 09:11 Dose: 1 mg Hydromorphone HCl (Dilaudid) 1 mg IVPUSH Q2H PRN PRN Reason: Pain Last Admin: 06/28/17 11:17 Dose: 1 mg Lactated Ringer's (Ringers, Lactated) 1,000 mls @ 200 mls/hr IV ASDIRECTED [facility] Last Admin: 06/28/17 06:55 Dose: 200 mls/hr Thiamine HCl 100 mg/ Sodium (Chloride) 51 mls @ 102 mls/hr IV DAILY [facility] Last Admin: 06/28/17 09:17 Dose: 102 mls/hr Ceftriaxone Sodium 1,000 mg/ (Dextrose/Water) 50 mls @ 100 mls/hr IV Q24H [facility] Last Admin: 06/27/17 16:11 Dose: 100 mls/hr Lorazepam (Ativan) 1 mg IVPUSH Q4H PRN; Protocol PRN Reason: CIWAA Ondansetron HCl (Zofran) 4 mg IVPUSH Q4H PRN PRN Reason: Nausea Temazepam (Restoril) 15 mg PO BEDTIME PRN PRN Reason: Insomnia Last Admin: 06/27/17 22:41 Dose: 15 mg Tiotropium [place] (Spiriva Handihaler) 18 mcg INH DAILY [facility] Last Admin: 06/28/17 09:15 Dose: 1 puff Discontinued Medications Diphenhydramine HCl (Benadryl) 50 mg IVPUSH ONETIME ONE Stop: 06/27/17 08:51 Last Admin: 06/27/17 09:08 Dose: 50 mg Hydromorphone HCl (Dilaudid) 1 mg IVPUSH ONETIME ONE Stop: 06/27/17 11:17 Last Admin: 06/27/17 11:22 Dose: 1 mg Hydromorphone HCl (Dilaudid) 1 mg IVPUSH Q3H PRN PRN Reason: Pain Last Admin: 06/28/17 06:49 Dose: 1 mg Sodium Chloride (Normal Saline) 1,000 mls @ 999 mls/hr IV .Bolus ONE Stop: 06/27/17 09:29 Last Admin: 06/27/17 08:41 Dose: 999 mls/hr Lactated Ringer's (Ringers, Lactated) 1,000 mls @ 999 mls/hr IV .BOLUS ONE Stop: 06/27/17 14:06 Last Admin: 06/27/17 13:31 Dose: 999 mls/hr Magnesium Sulfate 4 gm/ Premix 100 mls @ 50 mls/hr IV ONETIME ONE Stop: 06/28/17 10:13 Last Admin: 06/28/17 10:18 Dose: 50 mls/hr Lactated Ringer's (Ringers, Lactated) 1,000 mls @ 999 mls/hr IV .BOLUS ONE Stop: 06/28/17 10:06 Last Admin: 06/28/17 10:18 Dose: 999 mls/hr Iopamidol (Isovue Multipack-370 (76%)) 100 ml IVPUSH ONETIME STA Stop: 06/27/17 09:27 Last Admin: 06/27/17 09:27 Dose: 100 ml Ketorolac Tromethamine (Toradol) 30 mg IVPUSH ONETIME ONE Stop: 06/27/17 08:30 Last Admin: 06/27/17 08:41 Dose: 30 mg Methylprednisolone Sodium Succinate (Solu-Medrol) 125 mg IV STAT STA Stop: 06/27/17 08:51 Last Admin: 06/27/17 09:08 Dose: 125 mg Ondansetron HCl (Zofran) 4 mg IVPUSH ONETIME ONE Stop: 06/27/17 08:30 Last Admin: 06/27/17 08:41 Dose: 4 mg - Exam General: Alert, Oriented, Cooperative, No Acute Distress Neck: Supple Lungs: Clear to Auscultation, Normal Respiratory Effort Cardiovascular: Regular Rate, Regular Rhythm GI/Abdominal Exam: Normal Bowel Sounds, Soft, Tender (epigastric), Hernia ( large L abdominal hernia and 2 small R abdominal hernias. ) Extremities: Normal Inspection, Normal Range of Motion, Non-Tender, No Pedal Edema, Normal Capillary Refill Neurological: No New Focal Deficit Psy/Mental Status: Alert, Normal Affect, Normal Mood - Problem List & Annotations (1) Pancreatitis SNOMED Code(s): 15165657 Code(s): K85.90 - ACUTE PANCREATITIS WITHOUT NECROSIS OR INFECTION, UNSP Status: Acute Current Visit: Yes Qualifiers: Chronicity: acute Pancreatitis type: alcohol induced Acute pancreatitis complication: no infection or necrosis Qualified Code(s): K85.20 - Alcohol induced acute pancreatitis without necrosis or infection (2) Nausea & vomiting SNOMED Code(s): 62600285 Code(s): R11.2 - NAUSEA WITH VOMITING, UNSPECIFIED Status: Acute Current Visit: Yes (3) Abdominal pain SNOMED Code(s): 17555281 Code(s): R10.9 - UNSPECIFIED ABDOMINAL PAIN Status: Acute Current Visit: Yes (4) ETOH abuse SNOMED Code(s): 12503739 Code(s): F10.10 - ALCOHOL ABUSE, UNCOMPLICATED Status: Chronic Current Visit: Yes (5) Near syncope SNOMED Code(s): 322941407 Code(s): R55 - SYNCOPE AND COLLAPSE Status: Acute Current Visit: Yes (6) Abdominal hernia SNOMED Code(s): 92351955 Code(s): K46.9 - UNSPECIFIED ABDOMINAL HERNIA WITHOUT OBSTRUCTION OR GANGRENE Status: Chronic Current Visit: No Qualifiers: Hernia type: unspecified (7) COPD (chronic obstructive pulmonary disease) SNOMED Code(s): 70950560 Code(s): J44.9 - CHRONIC OBSTRUCTIVE PULMONARY DISEASE, UNSPECIFIED Status : Chronic Current Visit: No Qualifiers: COPD type: unspecified COPD Qualified Code(s): J44.9 - Chronic obstructive pulmonary disease, unspecified (8) Morbid obesity with BMI of 40.0-44.9, adult SNOMED Code(s): 733668379 Code(s): E66.01 - MORBID (SEVERE) OBESITY DUE TO EXCESS CALORIES; Z68.41 - BODY MASS INDEX (BMI) 40.0-44.9, ADULT Status: Chronic Current Visit: No (9) HTN (hypertension) SNOMED Code(s): 97717679 Code(s): I10 - ESSENTIAL (PRIMARY) HYPERTENSION Status: Chronic Current Visit: Yes Qualifiers: Hypertension type: essential hypertension Qualified Code(s): I10 - Essential (primary) hypertension (10) Iron deficiency anemia SNOMED Code(s): 01150073 Code(s): D50.9 - IRON DEFICIENCY ANEMIA, UNSPECIFIED Status: Chronic Current Visit: Yes - Problem List Review Problem List Initiated/Reviewed/Updated: Yes - My Orders Last 24 Hours: My Active Orders 06/27/17 13:10 CIWAA Assessment [RC] Q4H LORazepam [Ativan] 1 mg IVPUSH Q4H PRN 06/27/17 13:14 Oxygen Therapy [RC] PRN Up With Assistance [RC] ASDIRECTED VTE/DVT Education [RC] PER UNIT ROUTINE Vital Signs [RC] Q4H Ondansetron [Zofran] 4 mg IVPUSH Q4H PRN Resuscitation Status Routine 06/27/17 13:15 Intake and Output [RC] QSHIFT Folic Acid 1 mg SUBCUT DAILY Lactated Ringers [Ringers, Lactated] 1,000 ml IV ASDIRECTED Sequential Compression Device [OM.PC] Per Unit Routine 06/27/17 13:16 Albuterol [Ventolin HFA] 0 gm INH Q6H PRN 06/27/17 13:43 Telemetry Monitoring [Cardiac Monitoring] [RC] Q8H 06/27/17 14:07 Hemoccult [Fecal Occult Blood Collection] [RC] ASDIRECTED 06/27/17 14:30 cefTRIAXone [Rocephin] 1,000 mg Dextrose 5% in Water 50 ml IV Q24H 06/27/17 15:00 Thiamine [Vitamin B-1] 100 mg Sodium Chloride 0.9% [Normal Saline] 50 ml IV DAILY 06/27/17 Dinner NPO [Nothing Per Oral Diet] [DIET] 06/28/17 09:00 Tiotropium [Spiriva HandiHaler] 18 mcg INH DAILY 06/28/17 09:05 HYDROmorphone [Dilaudid] 1 mg IVPUSH Q2H PRN 06/28/17 11:21 FERRITIN [CHEM] Routine FOLIC ACID [CHEM] Routine IRON/TIBC [CHEM] Routine RETICULOCYTE COUNT [HEME] Routine TRANSFERRIN [CHEM] Routine VITAMIN B12 [CHEM] Routine 06/29/17 05:11 CBC WITH AUTO DIFF [HEME] AM COMPREHENSIVE METABOLIC PN,CMP [CHEM] AM MAGNESIUM [CHEM] AM PHOSPHORUS [CHEM] AM 06/30/17 05:11 CBC WITH AUTO DIFF [HEME] AM COMPREHENSIVE METABOLIC PN,CMP [CHEM] AM MAGNESIUM [CHEM] AM PHOSPHORUS [CHEM] AM - Plan Plan:: This 41year old female admitted with acute alcoholic pancreatitis 1. Alcoholic pancreatitis: Lipase elevated slightly overnight. Will give another LR bolus this morning and continue LR 200 mls/hr. Dilaudid for pain and Zofran for nausea. Bowel rest for now, ice chips ok. RUQ abdominal US revealed mild fatty infiltration of the liver, no cholelithiasis noted. Monitor electrolytes. Supplement Magnesium today, 1.3. If pain continues to worsen, may consider re-imaging tomorrow. 2. Alcohol abuse: CIWAA scores stable. Has not received any Ativan per CIWAA protocol PRN. Folate and Thiamine daily. Provide resources of AA meeting list and [facility] pamphlet on discharge. 3. Dark tarry stools: No stools overnight. Could be from Iron supplementation, which she takes for iron deficiency anemia. Hgb 9.3 this morning, may be dilutional, but will check iron studies and wait hemoccult. 4. OBDULIO: Improving. Secondary to dehydration, continue with IV fluids 5. Syncope: Monitor on telemetry. No arrhythmias noted, reports no near syncopal feelings since admission. BPs are lower, potentially hypotension related to HTN medication? will monitor. Will need PCP follow up. 6. HTN: Stable. Hold PO medication for now. 7. COPD: Controlled. Continue Spiriva VTE prophylaxis: SCDs only for now. Checking hemoccult. Dispo: 2-4 days pending improvement.
[2017-06-28] MEDS: HYDROmorphone 2 MG/ML SDV IVPUSH PRN ×4 (15:01→22:57)
[2017-06-28] MEDS: cefTRIAXone 1,000 MG in Dextrose 5% in Water 50 ML IV SCH ×2 (16:05)
[2017-06-28] MEDS: LORazepam 2 MG/ML SDV IVPUSH PRN ×2 (16:28→21:07)
[2017-06-28] MEDS: Ondansetron 4 MG/2 ML SDV IVPUSH PRN (23:02)
[2017-06-28] MEDS: Temazepam 15 MG Cap PO PRN (23:08)
[2017-06-29] MEDS: HYDROmorphone 2 MG/ML SDV IVPUSH PRN ×8 (01:06→20:00)
[2017-06-29] MEDS: Lactated Ringers 1,000 ML IV SCH ×5 (01:11→21:41)
[2017-06-29] MEDS: LORazepam 2 MG/ML SDV IVPUSH PRN ×5 (02:48→21:37)
[2017-06-29 06:49] LABS: CHLORIDE,CL 105 mmol/L (98-107); SODIUM,NA 137 mmol/L (136-145)
[2017-06-29] MEDS: Folic Acid 50 MG/10 ML MDV SUBCUT SCH (08:35)
[2017-06-29] MEDS: Ondansetron 4 MG/2 ML SDV IVPUSH PRN (08:38)
[2017-06-29] MEDS: Tiotropium Inhaler 18 MCG Inhalation Powder Cap Kit of 5 INH SCH (08:42)
--- NOTE | 2017-06-29 09:21 | PCM.PN ---
- General Info Date of Service: 06/29/17 Admission Dx/Problem (Free Text): Admission Diagnosis/Problem Admission Diagnosis/Problem Pancreatitis Subjective Update: Pain has improved today, but feeling more anxious and agitated. Definitely having alcohol withdrawl symptoms. No chest pain or SOB. Passing flatus, no BM yet. Pain more to RUQ and epigastric less radiation. Tolerating ice chips, no overt nausea or vomiting. Functional Status: Reports: Pain Controlled, Tolerating Diet, Ambulating, Urinating - Review of Systems General: Reports: No Symptoms. Denies: Fever, Fatigue, Malaise HEENT: Reports: No Symptoms. Denies: Headaches, Sore Throat, Visual Changes Pulmonary: Reports: No Symptoms. Denies: Shortness of Breath, Cough Cardiovascular: Reports: No Symptoms. Denies: Chest Pain, Edema Gastrointestinal: Reports: Abdominal Pain (RUQ and epigastric), Flatus. Denies : Nausea, Vomiting Genitourinary: Reports: No Symptoms Musculoskeletal: Reports: No Symptoms Skin: Reports: No Symptoms Neurological: Reports: Tremors Psychiatric: Reports: Anxiety, Agitation - Patient Data Vitals - Most Recent: Last Vital Signs Temp 98.1 F 06/29/17 08:00 Pulse 102 H 06/29/17 08:00 Resp 18 06/29/17 08:00 BP 132/81 06/29/17 08:00 Pulse Ox 96 06/29/17 08:00 Orthostatic Blood Pressure [ 105/56 Standing] Orthostatic Blood Pressure [ 105/55 Sitting] Orthostatic Blood Pressure [ 100/55 Supine] Weight - Most Recent: 120.474 kg I&O - Last 24 Hours: Intake & Output 06/28/17 06/29/17 06/29/17 22:59 06:59 14:59 Intake Total 1000 2020 Output Total 700 Balance 1000 1320 Lab Results Last 24 Hours: Laboratory Results - last 24 hr 06/28/17 06/28/17 06/28/17 Range/Units 06:30 06:30 06:30 WBC 11.26 H (4.0-11.0) K/uL RBC 2.87 L (4.30-5.90) M/uL Hgb 9.3 L (12.0-16.0) g/dL Hct 28.7 L (36.0-46.0) % MCV 100.0 H (80.0-98.0) fL MCH 32.4 H (27.0-32.0) pg MCHC 32.4 (31.0-37.0) g/dL RDW Std Deviation 49.9 (28.0-62.0) fl RDW Coeff of Christen 14 (11.0-15.0) % Plt Count 376 (150-400) K/uL MPV 9.50 (7.40-12.00) fL Neut % (Auto) 60.5 (48.0-80.0) % Lymph % (Auto) 31.1 (16.0-40.0) % [place] % (Auto) 8.0 (0.0-15.0) % Eos % (Auto) 0.2 (0.0-7.0) % Baso % (Auto) 0.2 (0.0-1.5) % Neut # (Auto) 6.8 H (1.4-5.7) K/uL Lymph # (Auto) 3.5 H (0.6-2.4) K/uL [place] # (Auto) 0.9 H (0.0-0.8) K/uL Eos # (Auto) 0.0 (0.0-0.7) K/uL Baso # (Auto) 0.0 (0.0-0.1) K/uL Nucleated RBC % 0.0 /100WBC Nucleated RBCs # 0 K/uL Absolute Retic 60.40 (20-80) K/uL Percent Retic 2.1 H (0.5-1.5) % Immature Retic Fraction 13 % Sodium (136-145) mmol/L Potassium (3.5-5.1) mmol/L Chloride (98-107) mmol/L Carbon Dioxide (21.0-32.0) mmol/L BUN (7.0-18.0) mg/dL Creatinine (0.6-1.0) mg/dL Est Cr Clr Drug Dosing mL/min Estimated GFR (MDRD) ml/min Glucose (74-106) mg/dL Calcium (8.5-10.1) mg/dL Phosphorus (2.6-4.7) mg/dL Magnesium (1.5-2.0) mg/dL Iron 60 (50-175) ug/dL TIBC 196 L (250-450) ug/dL % Saturation 30.61 (20-55) % Transferrin 137 L (200-400) ug/dL Ferritin 237 (8-252) ng/mL Total Bilirubin (0.2-1.0) mg/dL AST (15-37) IU/L ALT (14-63) IU/L Alkaline Phosphatase (46-116) U/L Total Protein (6.4-8.2) g/dL Albumin (3.4-5.0) g/dL Globulin (2.0-3.5) g/dL Albumin/Globulin Ratio (1.3-2.8) Lipase (73-393) U/L Vitamin B12 2414 H (193-986) pg/mL Folate 24.00 (8.60-58.90) ng/mL 06/29/17 06/29/17 06/29/17 Range/Units 05:20 05:20 05:20 WBC 12.72 H (4.0-11.0) K/uL RBC 3.13 L (4.30-5.90) M/uL Hgb 10.2 L (12.0-16.0) g/dL Hct 31.7 L (36.0-46.0) % MCV 101.3 H (80.0-98.0) fL MCH 32.6 H (27.0-32.0) pg MCHC 32.2 (31.0-37.0) g/dL RDW Std Deviation 51.9 (28.0-62.0) fl RDW Coeff of Christen 14 (11.0-15.0) % Plt Count 387 (150-400) K/uL MPV 9.50 (7.40-12.00) fL Neut % (Auto) 58.0 (48.0-80.0) % Lymph % (Auto) 28.7 (16.0-40.0) % [place] % (Auto) 9.8 (0.0-15.0) % Eos % (Auto) 2.9 (0.0-7.0) % Baso % (Auto) 0.6 (0.0-1.5) % Neut # (Auto) 7.4 H (1.4-5.7) K/uL Lymph # (Auto) 3.7 H (0.6-2.4) K/uL [place] # (Auto) 1.3 H (0.0-0.8) K/uL Eos # (Auto) 0.4 (0.0-0.7) K/uL Baso # (Auto) 0.1 (0.0-0.1) K/uL Nucleated RBC % 0.0 /100WBC Nucleated RBCs # 0 K/uL Absolute Retic (20-80) K/uL Percent Retic (0.5-1.5) % Immature Retic Fraction % Sodium 137 (136-145) mmol/L Potassium 4.3 (3.5-5.1) mmol/L Chloride 105 (98-107) mmol/L Carbon Dioxide 23.5 (21.0-32.0) mmol/L BUN 23 H (7.0-18.0) mg/dL Creatinine 0.9 (0.6-1.0) mg/dL Est Cr Clr Drug Dosing 71.75 mL/min Estimated GFR (MDRD) > 60.0 ml/min Glucose 83 (74-106) mg/dL Calcium 8.8 (8.5-10.1) mg/dL Phosphorus 3.6 (2.6-4.7) mg/dL Magnesium 1.8 (1.5-2.0) mg/dL Iron (50-175) ug/dL TIBC (250-450) ug/dL % Saturation (20-55) % Transferrin (200-400) ug/dL Ferritin (8-252) ng/mL Total Bilirubin 0.3 (0.2-1.0) mg/dL AST 44 H (15-37) IU/L ALT 23 (14-63) IU/L Alkaline Phosphatase 93 (46-116) U/L Total Protein 6.7 (6.4-8.2) g/dL Albumin 2.6 L (3.4-5.0) g/dL Globulin 4.1 H (2.0-3.5) g/dL Albumin/Globulin Ratio 0.6 L (1.3-2.8) Lipase 1247 H (73-393) U/L Vitamin B12 (193-986) pg/mL Folate (8.60-58.90) ng/mL Manpreet Results Last 24 Hours: Microbiology 06/27/17 08:16 Urine Culture - Final Urine, Clean Catch MIXED LEELA >100,000 CFU/ML Med Orders - Current: Current Medications Albuterol (Ventolin Hfa) 0 gm INH Q6H PRN PRN Reason: Shortness of Breath Folic Acid (Folic Acid) 1 mg SUBCUT DAILY [facility] Last Admin: 06/29/17 08:35 Dose: 1 mg Hydromorphone HCl (Dilaudid) 1.5 mg IVPUSH Q2H PRN PRN Reason: Pain Last Admin: 06/29/17 08:31 Dose: 1.5 mg Lactated Ringer's (Ringers, Lactated) 1,000 mls @ 200 mls/hr IV ASDIRECTED [facility] Last Admin: 06/29/17 05:58 Dose: 200 mls/hr Thiamine HCl 100 mg/ Sodium (Chloride) 51 mls @ 102 mls/hr IV DAILY [facility] Last Admin: 06/28/17 09:17 Dose: 102 mls/hr Ceftriaxone Sodium 1,000 mg/ (Dextrose/Water) 50 mls @ 100 mls/hr IV Q24H [facility] Last Admin: 06/28/17 16:05 Dose: 100 mls/hr Lorazepam (Ativan) 1 mg IVPUSH Q4H PRN; Protocol PRN Reason: CIWAA Last Admin: 06/29/17 02:48 Dose: 1 mg Ondansetron HCl (Zofran) 4 mg IVPUSH Q4H PRN PRN Reason: Nausea Last Admin: 06/29/17 08:38 Dose: 4 mg Temazepam (Restoril) 15 mg PO BEDTIME PRN PRN Reason: Insomnia Last Admin: 06/28/17 23:08 Dose: 15 mg Tiotropium [place] (Spiriva Handihaler) 18 mcg INH DAILY [facility] Last Admin: 06/29/17 08:42 Dose: 1 puff Discontinued Medications Diphenhydramine HCl (Benadryl) 50 mg IVPUSH ONETIME ONE Stop: 06/27/17 08:51 Last Admin: 06/27/17 09:08 Dose: 50 mg Hydromorphone HCl (Dilaudid) 1 mg IVPUSH ONETIME ONE Stop: 06/27/17 11:17 Last Admin: 06/27/17 11:22 Dose: 1 mg Hydromorphone HCl (Dilaudid) 1 mg IVPUSH Q3H PRN PRN Reason: Pain Last Admin: 06/28/17 06:49 Dose: 1 mg Hydromorphone HCl (Dilaudid) 1 mg IVPUSH Q2H PRN PRN Reason: Pain Last Admin: 06/28/17 13:30 Dose: 1 mg Sodium Chloride (Normal Saline) 1,000 mls @ 999 mls/hr IV .Bolus ONE Stop: 06/27/17 09:29 Last Admin: 06/27/17 08:41 Dose: 999 mls/hr Lactated Ringer's (Ringers, Lactated) 1,000 mls @ 999 mls/hr IV .BOLUS ONE Stop: 06/27/17 14:06 Last Admin: 06/27/17 13:31 Dose: 999 mls/hr Magnesium Sulfate 4 gm/ Premix 100 mls @ 50 mls/hr IV ONETIME ONE Stop: 06/28/17 10:13 Last Admin: 06/28/17 10:18 Dose: 50 mls/hr Lactated Ringer's (Ringers, Lactated) 1,000 mls @ 999 mls/hr IV .BOLUS ONE Stop: 06/28/17 10:06 Last Admin: 06/28/17 10:18 Dose: 999 mls/hr Iopamidol (Isovue Multipack-370 (76%)) 100 ml IVPUSH ONETIME STA Stop: 06/27/17 09:27 Last Admin: 06/27/17 09:27 Dose: 100 ml Ketorolac Tromethamine (Toradol) 30 mg IVPUSH ONETIME ONE Stop: 06/27/17 08:30 Last Admin: 06/27/17 08:41 Dose: 30 mg Methylprednisolone Sodium Succinate (Solu-Medrol) 125 mg IV STAT STA Stop: 06/27/17 08:51 Last Admin: 06/27/17 09:08 Dose: 125 mg Ondansetron HCl (Zofran) 4 mg IVPUSH ONETIME ONE Stop: 06/27/17 08:30 Last Admin: 06/27/17 08:41 Dose: 4 mg - Exam Quality Assessment: DVT Prophylaxis (SCDs). No: Supplemental Oxygen General: Alert, Oriented, Cooperative, No Acute Distress, Other (Appears very anxious and agitates easily) Neck: Supple Lungs: Clear to Auscultation, Normal Respiratory Effort Cardiovascular: Regular Rate, Regular Rhythm GI/Abdominal Exam: Normal Bowel Sounds, Soft, Tender (RUQ/epigastric), Hernia ( large L abdominal hernia, and smaller r hernias. No pain with these) Back Exam: Normal Inspection, Full Range of Motion Extremities: Normal Inspection, Normal Range of Motion, Non-Tender, No Pedal Edema, Normal Capillary Refill Neurological: Other (tremors noted to hands ) Psy/Mental Status: Anxious, Agitated - Problem List & Annotations (1) Pancreatitis SNOMED Code(s): 91708057 Code(s): K85.90 - ACUTE PANCREATITIS WITHOUT NECROSIS OR INFECTION, UNSP Status: Acute Current Visit: Yes Qualifiers: Chronicity: acute Pancreatitis type: alcohol induced Acute pancreatitis complication: no infection or necrosis Qualified Code(s): K85.20 - Alcohol induced acute pancreatitis without necrosis or infection (2) Alcohol withdrawal SNOMED Code(s): 830754127 Code(s): F10.239 - ALCOHOL DEPENDENCE WITH WITHDRAWAL, UNSPECIFIED Status: Acute Current Visit: Yes Qualifiers: Complication of substance-induced condition: uncomplicated Qualified Code(s ): F10.230 - Alcohol dependence with withdrawal, uncomplicated (3) Nausea & vomiting SNOMED Code(s): 95247214 Code(s): R11.2 - NAUSEA WITH VOMITING, UNSPECIFIED Status: Acute Current Visit: Yes (4) Abdominal pain SNOMED Code(s): 50951690 Code(s): R10.9 - UNSPECIFIED ABDOMINAL PAIN Status: Acute Current Visit: Yes (5) ETOH abuse SNOMED Code(s): 39232371 Code(s): F10.10 - ALCOHOL ABUSE, UNCOMPLICATED Status: Chronic Current Visit: Yes (6) Near syncope SNOMED Code(s): 987428422 Code(s): R55 - SYNCOPE AND COLLAPSE Status: Acute Current Visit: Yes (7) Abdominal hernia SNOMED Code(s): 88819389 Code(s): K46.9 - UNSPECIFIED ABDOMINAL HERNIA WITHOUT OBSTRUCTION OR GANGRENE Status: Chronic Current Visit: No Qualifiers: Hernia type: unspecified (8) COPD (chronic obstructive pulmonary disease) SNOMED Code(s): 07840873 Code(s): J44.9 - CHRONIC OBSTRUCTIVE PULMONARY DISEASE, UNSPECIFIED Status : Chronic Current Visit: No Qualifiers: COPD type: unspecified COPD Qualified Code(s): J44.9 - Chronic obstructive pulmonary disease, unspecified (9) Morbid obesity with BMI of 40.0-44.9, adult SNOMED Code(s): 556268810 Code(s): E66.01 - MORBID (SEVERE) OBESITY DUE TO EXCESS CALORIES; Z68.41 - BODY MASS INDEX (BMI) 40.0-44.9, ADULT Status: Chronic Current Visit: No (10) HTN (hypertension) SNOMED Code(s): 38307311 Code(s): I10 - ESSENTIAL (PRIMARY) HYPERTENSION Status: Chronic Current Visit: Yes Qualifiers: Hypertension type: essential hypertension Qualified Code(s): I10 - Essential (primary) hypertension (11) Iron deficiency anemia SNOMED Code(s): 54855691 Code(s): D50.9 - IRON DEFICIENCY ANEMIA, UNSPECIFIED Status: Chronic Current Visit: Yes - Problem List Review Problem List Initiated/Reviewed/Updated: Yes - My Orders Last 24 Hours: My Active Orders 06/28/17 09:00 Tiotropium [Spiriva HandiHaler] 18 mcg INH DAILY 06/28/17 14:30 HYDROmorphone [Dilaudid] 1.5 mg IVPUSH Q2H PRN 06/30/17 05:11 CBC WITH AUTO DIFF [HEME] AM COMPREHENSIVE METABOLIC PN,CMP [CHEM] AM MAGNESIUM [CHEM] AM PHOSPHORUS [CHEM] AM - Plan Plan:: This 41year old female admitted with acute alcoholic pancreatitis 1. Alcoholic pancreatitis: Lipase 1247 today, improving. Continue LR 200 mls/ hr. Dilaudid for pain and Zofran for nausea. Continue bowel rest until pain is better. Ice chips ok. Monitor electrolytes. Supplement Magnesium today, 1.3. 2. Alcohol Withdrawl: Now nearly 48 hours from last drink. Anxiety and agitation starting with noticable tremors to limbs and tongue. CIWAA scores elevating highest now, 8. Continue Ativan, which has helped with withdrawl. Folate and Thiamine daily. Provide resources of AA meeting list and [facility] pamphlet on discharge. 3. Dark tarry stools: No stools. Could be from Iron supplementation, which she takes for iron deficiency anemia. Hgb 10.2 this morning, may be dilutional. 4. OBDULIO: Continues to improve. Secondary to dehydration, continue with IV fluids 5. Syncope: Monitor on telemetry. No arrhythmias noted, reports no near syncopal feelings since admission. BPs are lower, potentially hypotension related to HTN medication? will monitor. Will need PCP follow up. Will obtain carotid U/S today. 6. HTN: Stable. Hold PO medication for now. 7. COPD: Controlled. Continue Spiriva VTE prophylaxis: SCDs only for now. Checking hemoccult. Dispo: 2-4 days pending improvement.
[2017-06-29] MEDS: Thiamine 100 MG in Sodium Chloride 0.9% 50 ML IV SCH (10:55)
[2017-06-29] MEDS ORDERED: Bisacodyl 10 MG Supp RECTAL PRN (12:50)
--- NOTE | 2017-06-29 13:24 | US ---
EXAMINATION: Carotid US with hodge scale and duplex imaging. HISTORY: Syncope FINDINGS: Ultrasound examination of bilateral cervical carotid arteries was performed using hodge scale and dupl ex imaging. No significant atheromatous changes noted within the carotid arteries. Antegrade flow n oted within the vertebrals. These are the peak velocities in cm per second (systole), right and left respectively, by a comma: CCA (common carotid artery) - 106, 96 ICA (internal carotid artery) - 74, 100 ECA (External carotid artery) - 72, 69 ICA/CCA systolic ratio Right - 1.2 Left - 1.4 IMPRESSION: 1. Unremarkable carotid duplex ultrasound.
[2017-06-29] MEDS: cefTRIAXone 1,000 MG in Dextrose 5% in Water 50 ML IV SCH ×2 (13:43)
[2017-06-30] MEDS: HYDROmorphone 2 MG/ML SDV IVPUSH PRN ×5 (00:53→13:49)
[2017-06-30] MEDS: LORazepam 2 MG/ML SDV IVPUSH PRN ×3 (02:44→15:22)
[2017-06-30] MEDS: Lactated Ringers 1,000 ML IV SCH ×4 (02:48→23:42)
[2017-06-30 06:37] LABS: CHLORIDE,CL 103 mmol/L (98-107); SODIUM,NA 133 mmol/L (136-145)
[2017-06-30] MEDS: Folic Acid 50 MG/10 ML MDV SUBCUT SCH (08:05)
[2017-06-30] MEDS: Thiamine 100 MG in Sodium Chloride 0.9% 50 ML IV SCH (08:35)
[2017-06-30] MEDS: Tiotropium Inhaler 18 MCG Inhalation Powder Cap Kit of 5 INH SCH (10:25)
[2017-06-30] MEDS ORDERED: Magnesium Sulfate/Water 4 GM in Premix Bag 1 BAG IV ONE (11:30)
--- NOTE | 2017-06-30 13:08 | PCM.PN ---
- General Info Date of Service: 06/30/17 Admission Dx/Problem (Free Text): Patient feeling better today ,diet advanced to full liquid diet , tolerated well , CIWA is 9 , still has pain but it is improved , controlled with pain medication. - Review of Systems General: Reports: No Symptoms HEENT: Reports: No Symptoms Pulmonary: Reports: No Symptoms Cardiovascular: Reports: No Symptoms Gastrointestinal: Reports: Abdominal Pain Genitourinary: Reports: No Symptoms Musculoskeletal: Reports: No Symptoms Skin: Reports: No Symptoms Neurological: Reports: No Symptoms Psychiatric: Reports: No Symptoms - Patient Data Vitals - Most Recent: Last Vital Signs Temp 97.6 F 06/30/17 12:00 Pulse 91 06/30/17 12:00 Resp 14 06/30/17 12:00 BP 101/61 06/30/17 12:00 Pulse Ox 96 06/30/17 12:00 Orthostatic Blood Pressure [ 105/56 Standing] Orthostatic Blood Pressure [ 105/55 Sitting] Orthostatic Blood Pressure [ 100/55 Supine] Weight - Most Recent: 265 lb 9.6 oz I&O - Last 24 Hours: Intake & Output 06/29/17 06/30/17 06/30/17 22:59 06:59 14:59 Intake Total 3360 1000 Output Total 1000 Balance 2360 1000 Lab Results Last 24 Hours: Laboratory Results - last 24 hr 06/30/17 06/30/17 Range/Units 05:48 05:48 WBC 9.03 (4.0-11.0) K/uL RBC 2.60 L (4.30-5.90) M/uL Hgb 8.4 L (12.0-16.0) g/dL Hct 25.9 L (36.0-46.0) % MCV 99.6 H (80.0-98.0) fL MCH 32.3 H (27.0-32.0) pg MCHC 32.4 (31.0-37.0) g/dL RDW Std Deviation 49.8 (28.0-62.0) fl RDW Coeff of Christen 14 (11.0-15.0) % Plt Count 289 (150-400) K/uL MPV 9.20 (7.40-12.00) fL Neut % (Auto) 44.1 L (48.0-80.0) % Lymph % (Auto) 40.3 H (16.0-40.0) % [place] % (Auto) 10.6 (0.0-15.0) % Eos % (Auto) 4.3 (0.0-7.0) % Baso % (Auto) 0.7 (0.0-1.5) % Neut # (Auto) 4.0 (1.4-5.7) K/uL Lymph # (Auto) 3.6 H (0.6-2.4) K/uL [place] # (Auto) 1.0 H (0.0-0.8) K/uL Eos # (Auto) 0.4 (0.0-0.7) K/uL Baso # (Auto) 0.1 (0.0-0.1) K/uL Nucleated RBC % 0.0 /100WBC Nucleated RBCs # 0 K/uL Sodium 133 L (136-145) mmol/L Potassium 4.3 (3.5-5.1) mmol/L Chloride 103 (98-107) mmol/L Carbon Dioxide 22.4 (21.0-32.0) mmol/L BUN 11 (7.0-18.0) mg/dL Creatinine 0.7 (0.6-1.0) mg/dL Est Cr Clr Drug Dosing 92.25 mL/min Estimated GFR (MDRD) > 60.0 ml/min Glucose 83 (74-106) mg/dL Calcium 8.0 L (8.5-10.1) mg/dL Phosphorus 3.3 (2.6-4.7) mg/dL Magnesium 1.1 L (1.5-2.0) mg/dL Total Bilirubin 0.3 (0.2-1.0) mg/dL AST 26 (15-37) IU/L ALT 18 (14-63) IU/L Alkaline Phosphatase 113 (46-116) U/L Total Protein 5.4 L (6.4-8.2) g/dL Albumin 2.2 L (3.4-5.0) g/dL Globulin 3.2 (2.0-3.5) g/dL Albumin/Globulin Ratio 0.7 L (1.3-2.8) Med Orders - Current: Current Medications Albuterol (Ventolin Hfa) 0 gm INH Q6H PRN PRN Reason: Shortness of Breath Bisacodyl (Dulcolax) 10 mg RECTAL DAILY PRN PRN Reason: Constipation Folic Acid (Folic Acid) 1 mg SUBCUT DAILY [facility] Last Admin: 06/30/17 08:05 Dose: 1 mg Hydromorphone HCl (Dilaudid) 1.5 mg IVPUSH Q2H PRN PRN Reason: Pain Last Admin: 06/30/17 11:46 Dose: 1.5 mg Lactated Ringer's (Ringers, Lactated) 1,000 mls @ 200 mls/hr IV ASDIRECTED [facility] Last Admin: 06/30/17 08:03 Dose: 200 mls/hr Thiamine HCl 100 mg/ Sodium (Chloride) 51 mls @ 102 mls/hr IV DAILY [facility] Last Admin: 06/30/17 08:35 Dose: 102 mls/hr Ceftriaxone Sodium 1,000 mg/ (Dextrose/Water) 50 mls @ 100 mls/hr IV Q24H [facility] Last Admin: 06/29/17 13:43 Dose: 100 mls/hr Magnesium Sulfate 4 gm/ Premix 100 mls @ 50 mls/hr IV ONETIME ONE Stop: 06/30/17 13:29 Last Admin: 06/30/17 11:53 Dose: 50 mls/hr Lorazepam (Ativan) 1 mg IVPUSH Q4H PRN; Protocol PRN Reason: CIWAA Last Admin: 06/30/17 07:07 Dose: 1 mg Ondansetron HCl (Zofran) 4 mg IVPUSH Q4H PRN PRN Reason: Nausea Last Admin: 06/29/17 08:38 Dose: 4 mg Temazepam (Restoril) 15 mg PO BEDTIME PRN PRN Reason: Insomnia Last Admin: 06/28/17 23:08 Dose: 15 mg Tiotropium [place] (Spiriva Handihaler) 18 mcg INH DAILY [facility] Last Admin: 06/30/17 10:25 Dose: 1 puff Discontinued Medications Diphenhydramine HCl (Benadryl) 50 mg IVPUSH ONETIME ONE Stop: 06/27/17 08:51 Last Admin: 06/27/17 09:08 Dose: 50 mg Hydromorphone HCl (Dilaudid) 1 mg IVPUSH ONETIME ONE Stop: 06/27/17 11:17 Last Admin: 06/27/17 11:22 Dose: 1 mg Hydromorphone HCl (Dilaudid) 1 mg IVPUSH Q3H PRN PRN Reason: Pain Last Admin: 06/28/17 06:49 Dose: 1 mg Hydromorphone HCl (Dilaudid) 1 mg IVPUSH Q2H PRN PRN Reason: Pain Last Admin: 06/28/17 13:30 Dose: 1 mg Sodium Chloride (Normal Saline) 1,000 mls @ 999 mls/hr IV .Bolus ONE Stop: 06/27/17 09:29 Last Admin: 06/27/17 08:41 Dose: 999 mls/hr Lactated Ringer's (Ringers, Lactated) 1,000 mls @ 999 mls/hr IV .BOLUS ONE Stop: 06/27/17 14:06 Last Admin: 06/27/17 13:31 Dose: 999 mls/hr Magnesium Sulfate 4 gm/ Premix 100 mls @ 50 mls/hr IV ONETIME ONE Stop: 06/28/17 10:13 Last Admin: 06/28/17 10:18 Dose: 50 mls/hr Lactated Ringer's (Ringers, Lactated) 1,000 mls @ 999 mls/hr IV .BOLUS ONE Stop: 06/28/17 10:06 Last Admin: 06/28/17 10:18 Dose: 999 mls/hr Iopamidol (Isovue Multipack-370 (76%)) 100 ml IVPUSH ONETIME STA Stop: 06/27/17 09:27 Last Admin: 06/27/17 09:27 Dose: 100 ml Ketorolac Tromethamine (Toradol) 30 mg IVPUSH ONETIME ONE Stop: 06/27/17 08:30 Last Admin: 06/27/17 08:41 Dose: 30 mg Methylprednisolone Sodium Succinate (Solu-Medrol) 125 mg IV STAT STA Stop: 06/27/17 08:51 Last Admin: 06/27/17 09:08 Dose: 125 mg Ondansetron HCl (Zofran) 4 mg IVPUSH ONETIME ONE Stop: 06/27/17 08:30 Last Admin: 06/27/17 08:41 Dose: 4 mg - Exam General: Alert, Oriented HEENT: Pupils Equal, Pupils Reactive Neck: Supple, Trachea Midline Lungs: Clear to Auscultation, Normal Respiratory Effort Cardiovascular: Regular Rate, Regular Rhythm, No Murmurs GI/Abdominal Exam: Normal Bowel Sounds, Tender, Hernia Back Exam: Normal Inspection Extremities: Normal Inspection - Problem List & Annotations (1) Episodic lightheadedness SNOMED Code(s): 188622329 Code(s): R42 - DIZZINESS AND GIDDINESS Status: Acute Current Visit: Yes (2) Alcohol withdrawal SNOMED Code(s): 927751032 Code(s): F10.239 - ALCOHOL DEPENDENCE WITH WITHDRAWAL, UNSPECIFIED Status: Acute Current Visit: Yes Qualifiers: Complication of substance-induced condition: uncomplicated Qualified Code(s ): F10.230 - Alcohol dependence with withdrawal, uncomplicated (3) Pancreatitis SNOMED Code(s): 13790813 Code(s): K85.90 - ACUTE PANCREATITIS WITHOUT NECROSIS OR INFECTION, UNSP Status: Acute Current Visit: Yes Qualifiers: Chronicity: acute Pancreatitis type: alcohol induced Acute pancreatitis complication: no infection or necrosis Qualified Code(s): K85.20 - Alcohol induced acute pancreatitis without necrosis or infection - Problem List Review Problem List Initiated/Reviewed/Updated: Yes - My Orders Last 24 Hours: My Active Orders 06/29/17 13:43 Echo Comp wo Cont [US] Routine 06/29/17 15:13 May Shower [RC] ASDIRECTED 06/30/17 09:45 OCCULT BLOOD SCREEN [OP] Routine 06/30/17 11:30 Magnesium Sulfate/Water [Magnesium Sulfate 4 GM in Water 100 ML] 4 gm Premix Bag 1 bag IV ONETIME 06/30/17 Lunch Full Liquid Diet [DIET] - Plan Plan:: This 41year old female admitted with acute alcoholic pancreatitis 1. Alcoholic pancreatitis: improving , pain medication changed to oral medication , tolerated well soft diet 2. Alcohol Withdrawl: on CIWA protocol 4. OBDULIO: resolved 5. Syncope: Monitor on telemetry. No arrhythmias noted, reports no near syncopal feelings since admission. BPs are lower, potentially hypotension related to pain medication .will monitor. Will need PCP follow up. Will obtain carotid U/S today. 6. HTN: Stable. Hold PO medication for now. 7. COPD: Controlled. Continue Spiriva VTE prophylaxis: SCDs only for now. d/c planning [facility]
[2017-06-30] MEDS: cefTRIAXone 1,000 MG in Dextrose 5% in Water 50 ML IV SCH ×2 (14:21)
[2017-06-30] MEDS ORDERED: HYDROmorphone 2 MG/ML SDV IVPUSH PRN (17:13)
[2017-06-30] MEDS: Acetaminophen/oxyCODONE 325-5 MG Tab PO PRN ×2 (17:23→22:06)
[2017-06-30] MEDS: Temazepam 15 MG Cap PO PRN (22:35)
[2017-06-30] MEDS ORDERED: Polyethylene Glycol 3350 Powder 17 GM Packet PO ONE (22:50)
[2017-07-01] MEDS: Acetaminophen/oxyCODONE 325-5 MG Tab PO PRN ×2 (04:31→08:38)
[2017-07-01] MEDS: Lactated Ringers 1,000 ML IV SCH (06:27)
[2017-07-01 06:32] LABS: CHLORIDE,CL 105 mmol/L (98-107); SODIUM,NA 139 mmol/L (136-145)
[2017-07-01] MEDS: Folic Acid 50 MG/10 ML MDV SUBCUT SCH (08:52)
[2017-07-01] MEDS: Tiotropium Inhaler 18 MCG Inhalation Powder Cap Kit of 5 INH SCH (08:53)
[2017-07-01] MEDS: Thiamine 100 MG in Sodium Chloride 0.9% 50 ML IV SCH (08:57)
--- NOTE | 2017-07-01 12:27 | PCM.DCSUM1 ---
Discharge Summary - Hospital Course HPI Initial Comments: Patient admitted in the hospital with pancreatitis , lipase 5000 and alcohol abuse , was treated with NS iv fluids and pain medication, CIWA protocol. Patient symptoms improved and she was started on clear liquid diet that was gradually advanced to regular diet and she tolerated diet well. She also c/o episodic lightheadedness and was given referral to Cardiology. She had an echo done and ECho was normal, orthostatic Vs showed no orthostasis , carotid Doppler b/l was unremarkable. Abdomen ultrasound right upper quadrant showed fatty infiltration of the liver , no cholelithiasis Patient stable for discharge today. There were no events on telemetry. - Discharge Data Discharge Date: 07/01/17 Discharge Disposition: Home, Self-Care 01 Condition: Good - Discharge Diagnosis/Problem(s) (1) Episodic lightheadedness SNOMED Code(s): 641979684 ICD Code: R42 - DIZZINESS AND GIDDINESS Status: Acute (2) Alcohol withdrawal SNOMED Code(s): 435023682 ICD Code: F10.239 - ALCOHOL DEPENDENCE WITH WITHDRAWAL, UNSPECIFIED Status : Acute Qualifiers: Complication of substance-induced condition: uncomplicated Qualified Code(s ): F10.230 - Alcohol dependence with withdrawal, uncomplicated (3) Pancreatitis SNOMED Code(s): 64200833 ICD Code: K85.90 - ACUTE PANCREATITIS WITHOUT NECROSIS OR INFECTION, UNSP Status: Acute Qualifiers: Chronicity: acute Pancreatitis type: alcohol induced Acute pancreatitis complication: no infection or necrosis Qualified Code(s): K85.20 - Alcohol induced acute pancreatitis without necrosis or infection (4) Anemia of chronic disorder SNOMED Code(s): 221268910 ICD Code: D63.8 - ANEMIA IN OTHER CHRONIC DISEASES CLASSIFIED ELSEWHERE Status: Acute (5) Menorrhagia SNOMED Code(s): 890844397 ICD Code: N92.0 - EXCESSIVE AND FREQUENT MENSTRUATION WITH REGULAR CYCLE Status: Acute (6) Iron deficiency anemia SNOMED Code(s): 60142883 ICD Code: D50.9 - IRON DEFICIENCY ANEMIA, UNSPECIFIED Status: Chronic Qualifiers: Iron deficiency anemia type: chronic blood loss Qualified Code(s): D50.0 - Iron deficiency anemia secondary to blood loss (chronic) - Discharge Plan Prescriptions/Med Rec: Bisacodyl [Dulcolax] 10 mg RECTAL DAILY PRN #10 supp PRN Reason: Constipation Folic Acid 1 mg PO DAILY 30 Days #30 tab Hydrocodone/Acetaminophen [Hydrocodon-Acetaminophen 5-325] 1 each PO Q6H PRN 7 Days #30 tablet PRN Reason: Pain Thiamine [Vitamin B-1] 100 mg PO DAILY 30 Days #30 tablet Home Medications: Home Meds Albuterol [Proair HFA] 2 puff INH QID PRN 01/26/16 [History] Iron/FA#1/C/B12/Biot/Coppr/Dss [Feriva FA Capsule] 1 each PO DAILY 01/26/16 [ History] Folic Acid 80 mcg PO BID 01/27/16 [History] Tiotropium [Spiriva HandiHaler] 2 puff DAILY 01/27/16 [History] Bisacodyl [Dulcolax] 10 mg RECTAL DAILY PRN #10 supp 07/01/17 [Rx] Folic Acid 1 mg PO DAILY 30 Days #30 tab 07/01/17 [Rx] Hydrocodone/Acetaminophen [Hydrocodon-Acetaminophen 5-325] 1 each PO Q6H PRN 7 Days #30 tablet 07/01/17 [Rx] Thiamine [Vitamin B-1] 100 mg PO DAILY 30 Days #30 tablet 07/01/17 [Rx] Patient Handouts: Acetaminophen; Hydrocodone tablets or capsules, Acute Pancreatitis, [id number]-[id number], Bisacodyl suppositories, Thiamine, Vitamin B1 tablets, Folic Acid, Vitamin B9 tablets Referrals: Rossy Bronson MD [Physician] - Ty Russell MD [Physician] - 07/05/17 9:00 am - Discharge Summary/Plan Comment DC Time >30 min.: Yes - General Info Date of Service: 07/01/17 - Review of Systems General: Reports: No Symptoms HEENT: Reports: No Symptoms Pulmonary: Reports: No Symptoms Cardiovascular: Reports: Lightheadedness (occ) Gastrointestinal: Reports: No Symptoms Genitourinary: Reports: No Symptoms Musculoskeletal: Reports: No Symptoms Skin: Reports: No Symptoms Neurological: Reports: No Symptoms Psychiatric: Reports: No Symptoms - Patient Data Vitals - Most Recent: Last Vital Signs Temp 98.6 F 07/01/17 12:00 Pulse 74 07/01/17 12:00 Resp 18 07/01/17 12:00 BP 125/80 07/01/17 12:00 Pulse Ox 96 07/01/17 12:00 Orthostatic Blood Pressure [ 105/56 Standing] Orthostatic Blood Pressure [ 105/55 Sitting] Orthostatic Blood Pressure [ 100/55 Supine] Weight - Most Recent: 265 lb 9.6 oz I&O - Last 24 hours: Intake & Output 06/30/17 07/01/17 07/01/17 22:59 06:59 14:59 Intake Total 2803 2200 66 Output Total 1450 2300 Balance 1353 -100 66 Lab Results - Last 24 hrs: Laboratory Results - last 24 hr 07/01/17 07/01/17 07/01/17 Range/Units 05:41 05:41 05:41 WBC 8.57 (4.0-11.0) K/uL RBC 2.61 L (4.30-5.90) M/uL Hgb 8.4 L (12.0-16.0) g/dL Hct 25.8 L (36.0-46.0) % MCV 98.9 H (80.0-98.0) fL MCH 32.2 H (27.0-32.0) pg MCHC 32.6 (31.0-37.0) g/dL RDW Std Deviation 49.5 (28.0-62.0) fl RDW Coeff of Christen 14 (11.0-15.0) % Plt Count 340 (150-400) K/uL MPV 9.60 (7.40-12.00) fL Nucleated RBC % 0.0 /100WBC Nucleated RBCs # 0 K/uL Sodium 139 (136-145) mmol/L Potassium 4.0 (3.5-5.1) mmol/L Chloride 105 (98-107) mmol/L Carbon Dioxide 25.5 (21.0-32.0) mmol/L BUN 7 (7.0-18.0) mg/dL Creatinine 0.8 (0.6-1.0) mg/dL Est Cr Clr Drug Dosing 80.72 mL/min Estimated GFR (MDRD) > 60.0 ml/min Glucose 88 (74-106) mg/dL Calcium 8.5 (8.5-10.1) mg/dL Magnesium 1.7 (1.5-2.0) mg/dL Total Bilirubin 0.3 (0.2-1.0) mg/dL AST 29 (15-37) IU/L ALT 21 (14-63) IU/L Alkaline Phosphatase 142 H (46-116) U/L Total Protein 5.9 L (6.4-8.2) g/dL Albumin 2.1 L (3.4-5.0) g/dL Globulin 3.8 H (2.0-3.5) g/dL Albumin/Globulin Ratio 0.6 L (1.3-2.8) Lipase 227 (73-393) U/L Blood Type Antibody Screen Crossmatch 07/01/17 Range/Units 08:27 WBC (4.0-11.0) K/uL RBC (4.30-5.90) M/uL Hgb (12.0-16.0) g/dL Hct (36.0-46.0) % MCV (80.0-98.0) fL MCH (27.0-32.0) pg MCHC (31.0-37.0) g/dL RDW Std Deviation (28.0-62.0) fl RDW Coeff of Christen (11.0-15.0) % Plt Count (150-400) K/uL MPV (7.40-12.00) fL Nucleated RBC % /100WBC Nucleated RBCs # K/uL Sodium (136-145) mmol/L Potassium (3.5-5.1) mmol/L Chloride (98-107) mmol/L Carbon Dioxide (21.0-32.0) mmol/L BUN (7.0-18.0) mg/dL Creatinine (0.6-1.0) mg/dL Est Cr Clr Drug Dosing mL/min Estimated GFR (MDRD) ml/min Glucose (74-106) mg/dL Calcium (8.5-10.1) mg/dL Magnesium (1.5-2.0) mg/dL Total Bilirubin (0.2-1.0) mg/dL AST (15-37) IU/L ALT (14-63) IU/L Alkaline Phosphatase (46-116) U/L Total Protein (6.4-8.2) g/dL Albumin (3.4-5.0) g/dL Globulin (2.0-3.5) g/dL Albumin/Globulin Ratio (1.3-2.8) Lipase (73-393) U/L Blood Type A POSITIVE Antibody Screen NEGATIVE Crossmatch See Detail Med Orders - Current: Current Medications Albuterol (Ventolin Hfa) 0 gm INH Q6H PRN PRN Reason: Shortness of Breath Bisacodyl (Dulcolax) 10 mg RECTAL DAILY PRN PRN Reason: Constipation Folic Acid (Folic Acid) 1 mg SUBCUT DAILY [facility] Last Admin: 07/01/17 08:52 Dose: 1 mg Thiamine HCl 100 mg/ Sodium (Chloride) 51 mls @ 102 mls/hr IV DAILY [facility] Last Admin: 07/01/17 08:57 Dose: 102 mls/hr Lactated Ringer's (Ringers, Lactated) 1,000 mls @ 150 mls/hr IV ASDIRECTED [facility] Last Admin: 07/01/17 06:27 Dose: 150 mls/hr Lorazepam (Ativan) 1 mg IVPUSH Q4H PRN; Protocol PRN Reason: CIWAA Last Admin: 06/30/17 15:22 Dose: 1 mg Ondansetron HCl (Zofran) 4 mg IVPUSH Q4H PRN PRN Reason: Nausea Last Admin: 06/29/17 08:38 Dose: 4 mg Oxycodone/Acetaminophen (Percocet 325-5 Mg) 1 tab PO Q4H PRN PRN Reason: Pain Last Admin: 07/01/17 08:38 Dose: 1 tab Temazepam (Restoril) 15 mg PO BEDTIME PRN PRN Reason: Insomnia Last Admin: 06/30/17 22:35 Dose: 15 mg Tiotropium [place] (Spiriva Handihaler) 18 mcg INH DAILY [facility] Last Admin: 07/01/17 08:53 Dose: 1 puff Discontinued Medications Diphenhydramine HCl (Benadryl) 50 mg IVPUSH ONETIME ONE Stop: 06/27/17 08:51 Last Admin: 06/27/17 09:08 Dose: 50 mg Hydromorphone HCl (Dilaudid) 1 mg IVPUSH ONETIME ONE Stop: 06/27/17 11:17 Last Admin: 06/27/17 11:22 Dose: 1 mg Hydromorphone HCl (Dilaudid) 1 mg IVPUSH Q3H PRN PRN Reason: Pain Last Admin: 06/28/17 06:49 Dose: 1 mg Hydromorphone HCl (Dilaudid) 1 mg IVPUSH Q2H PRN PRN Reason: Pain Last Admin: 06/28/17 13:30 Dose: 1 mg Hydromorphone HCl (Dilaudid) 1.5 mg IVPUSH Q2H PRN PRN Reason: Pain Last Admin: 06/30/17 13:49 Dose: 1.5 mg Hydromorphone HCl (Dilaudid) 1 mg IVPUSH Q4H PRN PRN Reason: Pain Sodium Chloride (Normal Saline) 1,000 mls @ 999 mls/hr IV .Bolus ONE Stop: 06/27/17 09:29 Last Admin: 06/27/17 08:41 Dose: 999 mls/hr Lactated Ringer's (Ringers, Lactated) 1,000 mls @ 999 mls/hr IV .BOLUS ONE Stop: 06/27/17 14:06 Last Admin: 06/27/17 13:31 Dose: 999 mls/hr Lactated Ringer's (Ringers, Lactated) 1,000 mls @ 100 mls/hr IV ASDIRECTED [facility] Last Admin: 06/30/17 16:14 Dose: 200 mls/hr Ceftriaxone Sodium 1,000 mg/ (Dextrose/Water) 50 mls @ 100 mls/hr IV Q24H [facility] Last Admin: 06/30/17 14:21 Dose: 100 mls/hr Magnesium Sulfate 4 gm/ Premix 100 mls @ 50 mls/hr IV ONETIME ONE Stop: 06/28/17 10:13 Last Admin: 06/28/17 10:18 Dose: 50 mls/hr Lactated Ringer's (Ringers, Lactated) 1,000 mls @ 999 mls/hr IV .BOLUS ONE Stop: 06/28/17 10:06 Last Admin: 06/28/17 10:18 Dose: 999 mls/hr Magnesium Sulfate 4 gm/ Premix 100 mls @ 50 mls/hr IV ONETIME ONE Stop: 06/30/17 13:29 Last Admin: 06/30/17 11:53 Dose: 50 mls/hr Iopamidol (Isovue Multipack-370 (76%)) 100 ml IVPUSH ONETIME STA Stop: 04/18/18 09:27 Last Admin: 06/27/17 09:27 Dose: 100 ml Ketorolac Tromethamine (Toradol) 30 mg IVPUSH ONETIME ONE Stop: 06/27/17 08:30 Last Admin: 06/27/17 08:41 Dose: 30 mg Methylprednisolone Sodium Succinate (Solu-Medrol) 125 mg IV STAT STA Stop: 06/27/17 08:51 Last Admin: 06/27/17 09:08 Dose: 125 mg Ondansetron HCl (Zofran) 4 mg IVPUSH ONETIME ONE Stop: 06/27/17 08:30 Last Admin: 06/27/17 08:41 Dose: 4 mg Polyethylene Glycol (Miralax) 17 gm PO ONETIME ONE Stop: 06/30/17 22:51 Last Admin: 06/30/17 23:05 Dose: 17 gm - Exam General: Reports: Alert, Oriented HEENT: Reports: Pupils Equal Neck: Reports: Supple, Trachea Midline Lungs: Reports: Clear to Auscultation, Normal Respiratory Effort Cardiovascular: Reports: Regular Rate, Regular Rhythm GI/Abdominal Exam: Normal Bowel Sounds, Soft, Non-Tender, No Distention, No Abnormal Bruit, No Mass Extremities: Normal Inspection, Normal Range of Motion, Non-Tender, No Pedal Edema Skin: Reports: Warm, Dry, Intact Neurological: Reports: No New Focal Deficit Psy/Mental Status: Reports: Alert, Normal Affect EKG INTERPRETATION EKG Date: 07/01/17 Rhythm: NSR *Q Meaningful Use (DIS) - VTE *Q VTE Pharmacological Contraindications *Q: Risk of Bleeding
[2017-07-01 14:40] VITALS: BP 133/97
== END 2017-07-01 14:10 | disposition home or self-care (01) | DRG 439 ==
LOC: MW.ED 07:54 → MW.MS 11:33
PROVIDERS: ADMIT Internal Medicine; ATTEND Internal Medicine
PROC: 30233N1 Transfusion of Nonautologous Red Blood Cells into Peripheral Vein, Percutaneous Approach (ICD-10-PCS; principal; 2017-07-01)
DX: K85.20 Alcohol induced acute pancreatitis without necrosis or infection (principal); Z68.41 Body mass index [BMI] 40.0-44.9, adult; S37.009A Unspecified injury of unspecified kidney, initial encounter; F10.230 Alcohol dependence with withdrawal, uncomplicated; N39.0 Urinary tract infection, site not specified; R11.2 Nausea with vomiting, unspecified; R55 Syncope and collapse; K46.9 Unspecified abdominal hernia without obstruction or gangrene; R42 Dizziness and giddiness; J44.9 Chronic obstructive pulmonary disease, unspecified; D50.0 Iron deficiency anemia secondary to blood loss (chronic); E66.01 Morbid (severe) obesity due to excess calories; N92.0 Excessive and frequent menstruation with regular cycle; I10 Essential (primary) hypertension; E86.0 Dehydration; Z91.041 Radiographic dye allergy status; Z88.8 Allergy status to other drugs, medicaments and biological substances; Z79.899 Other long term (current) drug therapy
CPT/HCPCS: 36415; 36430; 71045; 71045-26; 74176; 74176-26; 76705; 76705-26; 80053; 81001; 81025; 82150; 82607; 82728; 82746; 83550; 83690; 83735; 84100; 84484; 85025; 85027; 85045; 85610; 86850; 86900; 86901; 86920; 86921; 86922; 87086; 93005; 93306; 93880; 93880-26; 96361; 96374; 96375; 99285-25; A9270-GY; J0696; J1170; J1200; J1885; J2060; J2405; J2930; J3411; J3475; J7040; J7050; J7060; J7120; P9016; Q9967

== ENCOUNTER 2018-04-24 15:33 | Emergency (ER) | payer MEDICAID ==
[2018-04-24] MEDS ORDERED: Sodium Chloride 0.9% 1,000 ML IV ONE ×2 (16:23→18:56)
[2018-04-24] MEDS ORDERED: Morphine 4 MG/ML Syringe IVPUSH ONE (16:57)
--- NOTE | 2018-04-24 17:07 | EDM.PDOC ---
ED HPI GENERAL MEDICAL PROBLEM - General Chief Complaint: Abdominal Pain Stated Complaint: BODY ACHES Time Seen by Provider: 04/24/18 16:50 Source of Information: Reports: Patient History Limitations: Reports: No Limitations - History of Present Illness INITIAL COMMENTS - FREE TEXT/NARRATIVE: HISTORY AND PHYSICAL: History of present illness: Patient is a 42-year-old female who presents to the emergency room today with complaints of upper quadrant pain. Patient describes the pain as sharp and constant and rates it a 10 out of 10. Patient states this has been ongoing since Sunday. She states she did have vomiting Sunday and Sunday but that had stopped Sunday. Patient states that this is the worst pain she's had even with her history of pancreatitis. She has not been sexually active in years and cannot be . Patient states she is also currently menstruating. Patient states the pain is so severe that she is unable to stand up completely or lay down since this morning. Patient states that she is unable to even press on her abdomen without severe pain. Patient has not been eating since Sunday and has been able to drink minimal fluids. Patient denies fever, chills, chest pain, shortness of breath, difficulties breathing, diarrhea, constipation, blood in stool, burning with urination, blood in urine, or any other GI or symptoms. Patient states she does have a history of pancreatitis. She also has a large abdominal hernia that she has had several surgeries on with a history of an ostomy due to bowel obstruction within the hernia. Patient states the last issue she had with her hernia was in 2013. Patient denies any other health history. Review of systems: As per history of present illness and below otherwise all systems reviewed and negative. Past medical history: As per history of present illness and as reviewed below otherwise noncontributory. Surgical history: As per history of present illness and as reviewed below otherwise noncontributory. Social history: See social history for further information Family history: As per history of present illness and as reviewed below otherwise noncontributory. Physical exam: General: Patient is alert, oriented, in mild distress. She is sitting on exam table guarding her abdomen but is able to talk in complete sentences. HEENT: Atraumatic, normocephalic, pupils equal and reactive bilaterally, negative for conjunctival pallor or scleral icterus, mucous membranes moist, TMs normal bilaterally, throat clear, neck supple, nontender, trachea midline. No drooling or trismus noted. No meningeal signs. No hot potato voice noted. Lungs: Clear to auscultation, breath sounds equal bilaterally, chest nontender. Heart: S1S2, regular rate and rhythm without overt murmur Abdomen: Abdominal exam limited due to pain. Severe pain to light palpation with positive guarding. Soft, nondistended. Patient does have a large left lower abdominal hernia about the size of a basketball (normal patient variance) . Negative for masses or hepatosplenomegaly. Negative for costovertebral tenderness. Unable to assess psoas sign, obturator sign, or rebound tenderness due to pain. Pelvis: Stable nontender. Genitourinary: Deferred. Rectal: Deferred. Skin: Intact, warm, dry. No lesions or rashes noted. Extremities: Atraumatic, moves all per self, negative for cords or calf pain. Neurovascular unremarkable. Neuro: Awake, alert, oriented. Cranial nerves II through XII unremarkable. Cerebellum unremarkable. Motor and sensory unremarkable throughout. Exam nonfocal. Notes: Currently [facility] is at maximum capacity with no open beds until reevaluation at 7 PM. Our ambulance and flight crew is currently busy doing transfers. We'll continue to hold this patient here in the emergency room with continued monitoring until we are able to either admit or transfer this patient. Patient is aware of this and agreeable, she offers no current concerns at this time. CT shows a large upper abdominal mass. This may represent a large pancreatic pseudocyst with surrounding inflammation. There are punctate calcifications in the pancreatic tail. The pancreatic head and proximal pancreatic body are poorly visualized. Less likely considerations include a pedunculated hepatic mass, contained rupture of a gastric or duodenal ulcer, or pancreatic neoplasm. Large left-sided abdominal wall hernia containing bowel. The entire hernia sac was not included on the exam due to patient body habitus. Chronic left subcapsular renal hematoma. Right adrenal gland adenoma. Colonic diverticulosis. Dr Veloz at [facility] was consulted on this case, as we do not have any ICU beds available at this time. He is agreeable to keeping this patient for further evaluation and management. He requests a second liter IV fluid bolus and pain management. He declines the need for any IV antibiotics in route for transfer. Patient is aware and agreeable for transfer. Vital signs remain stable. We do not have any ground ambulance is available for transfer. [facility] in [place], flight crew, we'll transfer this patient. Diagnostics: CBC, CMP, UA, abdominal pelvic CT Therapeutics: Morphine, normal saline x2 L, IV Dilaudid Impression: Pancreatitis Elevated AST/ALT Plan: Transfer to [facility] in [place] - Dr Veloz Definitive disposition and diagnosis as appropriate pending reevaluation and review of above. abdomen & back Pain Score (Numeric/FACES): 10 - Related Data Allergies Allergy/AdvReac Type Severity Reaction Status Date / Time Iodinated Contrast- Oral and Allergy Hives Verified 04/24/18 16:11 IV Dye [Iodinated Contrast Media - IV Dye] metoprolol Allergy Hives Verified 04/24/18 16:11 Home Meds: Home Meds Albuterol [Proair HFA] 2 puff INH QID PRN 01/26/16 [History] Tiotropium [Spiriva HandiHaler] 2 puff INH DAILY 01/27/16 [History] Cyanocobalamin (Vitamin B12) [Vitamin B12] 1,000 mcg PO DAILY 11/02/17 [History] Ferrous Sulfate [Iron] 1 tab PO BID 11/02/17 [History] Folic Acid 400 mcg PO DAILY 11/02/17 [History] Propranolol HCl [Propranolol] 60 mg PO DAILY 11/06/17 [History] Thiamine [Vitamin B-1] 200 mg PO DAILY 04/24/18 [History] Past Medical History HEENT History: Reports: Allergic Rhinitis, Other (See Below) Other HEENT History: wears glasses Cardiovascular History: Reports: Hypertension Respiratory History: Reports: Asthma, COPD, Other (See Below) Other Respiratory History: "possible sleep apnea, but has not been tested yet" Gastrointestinal History: Reports: GERD, Pancreatitis Other Gastrointestinal History: 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 Genitourinary History: Reports: None EXTENSION SUPERVISOR History: Reports: Other EXTENSION SUPERVISOR History: c section Musculoskeletal History: Reports: None Neurological History: Reports: Migraines, Seizure Other Neuro History: states seizure x1 5 yrs ago, motion sickness Psychiatric History: Reports: Anxiety Endocrine/Metabolic History: Reports: Obesity/BMI 30+ Hematologic History: Reports: Blood Transfusion(s), Iron Deficiency Oncologic (Cancer) History: Reports: None Dermatologic History: Reports: None - Past Surgical History Head Surgeries/Procedures: Reports: None GI Surgical History: Reports: Hernia, Inguinal, Other (See Below) Other GI Surgeries/Procedures: splenectomy, exploratory laparotomy Female Surgical History: Reports: Section Musculoskeletal Surgical History: Reports: None Oncologic Surgical History: Reports: None Dermatological Surgical History: Reports: None Social & Family History - Family History Family Medical History: Noncontributory HEENT: Reports: None Cardiac: Reports: Hypertension Respiratory: Reports: Asthma GI: Reports: None : Reports: None OBGYN: Reports: None Musculoskeletal: Reports: Arthritis Neurological: Reports: CVA Psychiatric: Reports: None Endocrine/Metabolic: Reports: Diabetes, type II Hematologic: Reports: None Oncologic: Reports: None - Tobacco Use Smoking Status *Q: Former Smoker Years of Tobacco use: 15 Packs/Tins Daily: 0.5 Used Tobacco, but Quit: Yes Month/Year Tobacco Last Used: quit 1 year ago - Caffeine Use Caffeine Use: Reports: Soda - Alcohol Use Days Per Week of Alcohol Use: 2 Number of Drinks Per Day: 4 Total Drinks Per Week: 8 - Recreational Drug Use Recreational Drug Use: No - Living Situation & Occupation Living situation: Reports: with Significant Other Occupation: Unemployed ED ROS GENERAL - Review of Systems Review Of Systems: ROS reveals no pertinent complaints other than HPI. ED EXAM, GI/ABD - Physical Exam Exam: See Below (See dictation) Course - Vital Signs Last Recorded V/S: Last Vital Signs Temp 97.2 F 04/24/18 16:08 Pulse 141 H 04/24/18 16:08 Resp 26 H 04/24/18 16:08 BP 128/72 04/24/18 16:08 Pulse Ox 95 04/24/18 16:08 - Orders/Labs/Meds Orders: Active Orders 24 hr Category Date Time Status CULTURE BLOOD [BC] Stat Lab 04/24/18 18:13 Received CULTURE BLOOD [BC] Stat Lab 04/24/18 18:27 Received UA RFX ASHLEY AND CULT IF INDIC [URIN] Stat Lab 04/24/18 16:23 Ordered Sodium Chloride 0.9% [Normal Saline] 1,000 ml Med 04/24/18 18:56 Active IV STAT Blood Culture x2 Reflex Set [OM.PC] Stat Oth 04/24/18 17:50 Ordered Medication Orders Sodium Chloride (Normal Saline) 1,000 mls @ 999 mls/hr IV STAT ONE Stop: 04/24/18 19:56 Labs: Laboratory Tests 04/24/18 04/24/18 Range/Units 16:37 16:37 WBC 13.30 H (4.0-11.0) K/uL RBC 3.99 L (4.30-5.90) M/uL Hgb 13.0 (12.0-16.0) g/dL Hct 37.8 (36.0-46.0) % MCV 94.7 (80.0-98.0) fL MCH 32.6 H (27.0-32.0) pg MCHC 34.4 (31.0-37.0) g/dL RDW Std Deviation 47.0 (28.0-62.0) fl RDW Coeff of Christen 14 (11.0-15.0) % Plt Count 537 H (150-400) K/uL MPV 9.30 (7.40-12.00) fL Neut % (Auto) 73.8 (48.0-80.0) % Lymph % (Auto) 15.2 L (16.0-40.0) % Wise % (Auto) 10.2 (0.0-15.0) % Eos % (Auto) 0.5 (0.0-7.0) % Baso % (Auto) 0.3 (0.0-1.5) % Neut # (Auto) 9.8 H (1.4-5.7) K/uL Lymph # (Auto) 2.0 (0.6-2.4) K/uL Wise # (Auto) 1.4 H (0.0-0.8) K/uL Eos # (Auto) 0.1 (0.0-0.7) K/uL Baso # (Auto) 0.0 (0.0-0.1) K/uL Nucleated RBC % 0.0 /100WBC Nucleated RBCs # 0 K/uL Sodium 132 L (136-145) mmol/L Potassium 3.2 L (3.5-5.1) mmol/L Chloride 98 (98-107) mmol/L Carbon Dioxide 20.3 L (21.0-32.0) mmol/L BUN 25 H (7.0-18.0) mg/dL Creatinine 1.0 (0.6-1.0) mg/dL Est Cr Clr Drug Dosing 63.93 mL/min Estimated GFR (MDRD) > 60.0 ml/min Glucose 154 H (74-106) mg/dL Calcium 9.6 (8.5-10.1) mg/dL Total Bilirubin 3.2 H (0.2-1.0) mg/dL AST 134 H (15-37) IU/L ALT 81 H (14-63) IU/L Alkaline Phosphatase 357 H (46-116) U/L Total Protein 8.1 (6.4-8.2) g/dL Albumin 2.2 L (3.4-5.0) g/dL Globulin 5.9 H (2.6-4.0) g/dL Albumin/Globulin Ratio 0.4 L (0.9-1.6) Amylase 259 H (25-115) U/L Lipase 3090 H (73-393) U/L Meds: Medications Generic Name Dose Route Start Last Admin Trade Name Freq PRN Reason Stop Dose Admin Sodium Chloride 1,000 mls @ 999 mls/hr 04/24/18 18:56 Normal Saline IV 04/24/18 19:56 STAT ONE Discontinued Medications Generic Name Dose Route Start Last Admin Trade Name Freq PRN Reason Stop Dose Admin Hydromorphone HCl 1 mg 04/24/18 17:55 04/24/18 18:24 Dilaudid IV 04/24/18 17:56 1 mg ONETIME ONE Administration Hydromorphone HCl Confirm 04/24/18 18:20 04/24/18 18:23 Dilaudid Administered 04/24/18 18:21 Not Given Dose 1 mg .ROUTE .STK-MED ONE Sodium Chloride 1,000 mls @ 999 mls/hr 04/24/18 16:23 04/24/18 17:14 Normal Saline IV 04/24/18 17:23 999 mls/hr STAT ONE Administration Morphine Sulfate 4 mg 04/24/18 16:57 04/24/18 17:15 Morphine IVPUSH 04/24/18 16:58 4 mg ONETIME ONE Administration Departure - Departure Time of Disposition: 19:16 Disposition: DC/Tfer to Acute Hospital 02 Clinical Impression: Elevated liver enzymes Pancreatitis Qualifiers: Chronicity: acute Pancreatitis type: unspecified pancreatitis type Acute pancreatitis complication: unspecified Qualified Code(s): K85.90 - Acute pancreatitis without necrosis or infection, unspecified - Discharge Information Referrals: Ty Rsusell MD [Primary Care Provider] - Forms: ED Department Discharge - My Orders Last 24 Hours: My Active Orders 04/24/18 16:23 UA RFX ASHLEY AND CULT IF INDIC [URIN] Stat 04/24/18 17:50 Blood Culture x2 Reflex Set [OM.PC] Stat 04/24/18 18:13 CULTURE BLOOD [BC] Stat 04/24/18 18:27 CULTURE BLOOD [BC] Stat 04/24/18 18:56 Sodium Chloride 0.9% [Normal Saline] 1,000 ml IV STAT - Assessment/Plan Last 24 Hours: My Active Orders 04/24/18 16:23 UA RFX ASHLEY AND CULT IF INDIC [URIN] Stat 04/24/18 17:50 Blood Culture x2 Reflex Set [OM.PC] Stat 04/24/18 18:13 CULTURE BLOOD [BC] Stat 04/24/18 18:27 CULTURE BLOOD [BC] Stat 04/24/18 18:56 Sodium Chloride 0.9% [Normal Saline] 1,000 ml IV STAT
[2018-04-24 17:19] LABS: CHLORIDE,CL 98 mmol/L (98-107); SODIUM,NA 132 mmol/L (136-145)
[2018-04-24] MEDS ORDERED: HYDROmorphone 2 MG/ML SDV IV ONE (17:55)
[2018-04-24] MEDS ORDERED: HYDROmorphone 1 MG/ML Syringe ONE ×3 (18:20→20:06)
--- NOTE | 2018-04-24 18:46 | CT ---
INDICATION: Upper abdominal pain for 4 days TECHNIQUE: CT abdomen and pelvis without contrast. Patient develops hives in reaction to IV contrast administration. COMPARISON: None FINDINGS: Note that there is a large left-sided abdominal wall hernia containing mesenteric fat and portions of the bowel. The entire hernia is not included on the exam due to the patient`s body habitus. There is a 15.9 x 12.7 x 12.3 cm heterogeneous mass insinuated between the liver, stomach, duodenum, and pancreas. There is surrounding fat stranding and nodular areas of fluid density in the left upper abdomen. There is also a small amount of free fluid around the liver. The mass displaces the stomach to the left. There are punctate calcifications in the pancreatic tail. The pancreatic head and proximal pancreatic body are poorly visualized. There is a 2 cm right adrenal gland adenoma. There is a 8.0 x 1.8 cm chronic left subcapsular renal hematoma with rim calcification. There are multiple splenules in the left upper quadrant. The gallbladder is not definitely seen. The visualized portions of the small and large bowel demonstrate colonic diverticulosis. There are segments of normal appearing colon within 2 additional central ventral hernias. No evidence for bowel obstruction or incarceration. No extraluminal air or pneumatosis. Pelvic organs are unremarkable. Lung bases are clear. No acute osseous abnormality. IMPRESSION: Large upper abdominal mass. This may represent a large pancreatic pseudocyst with surrounding inflammation. Less likely considerations include a pedunculated hepatic mass, contained rupture of a gastric or duodenal ulcer, or pancreatic neoplasm. Note that the patient has allergy to IV contrast is hives. Consider pretreatment with Benadryl followed by IV contrast enhanced CT abdomen pelvis for further evaluation. Large left-sided abdominal wall hernia containing bowel. The entire hernia sac was not included on the exam due to patient body habitus. Chronic left subcapsular renal hematoma. Right adrenal gland adenoma. Colonic diverticulosis. Multiple splenules. These findings were discussed with Dr. Herron at 6:40 p.m. on April 24, 2018. Please note that all CT scans at this facility use dose modulation, iterative reconstruction, and/or weight-based dosing when appropriate to reduce radiation dose to as low as reasonably achievable. Dictated by Negar Carias MD @ Apr 24 2018 6:45PM Signed by Dr. Negar Carias @ Apr 24 2018 6:45PM
[2018-04-24] MEDS ORDERED: HYDROmorphone 2 MG/ML Syringe IVPUSH ONE ×2 (19:22→20:00)
[2018-04-24 20:26] VITALS: BP 109/67
== END 2018-04-24 20:27 ==
LOC: MW.ED 15:33
DX: K85.90 Acute pancreatitis without necrosis or infection, unspecified (principal); R94.5 Abnormal results of liver function studies; I10 Essential (primary) hypertension; Z87.891 Personal history of nicotine dependence; Z79.899 Other long term (current) drug therapy; Z91.041 Radiographic dye allergy status; Z88.8 Allergy status to other drugs, medicaments and biological substances
CPT/HCPCS: 36415; 74176; 80053; 82150; 83690; 85025; 87040; 87804; 96361; 96374; 96375; 96376; 99285; J1170; J2270; J7040